=== PATIENT | female | born 1995 | race Caucasian/White ===

== ENCOUNTER 2024-06-08 13:22 | Observation (INO) | payer OTHER, SELFPAY ==
--- NOTE | ~2024-06-08 | CT_ITS ---
Non-contrast CT scan of the Abdomen and Pelvis Clinical indication: Fever, abdominal pain Technique: 2.5 mm axial scans were obtained through the abdomen and pelvis without intravenous or or al contrast. Dose reduction technique was used on this scan by utilizing automated exposure control a nd iterative reconstruction technique. The dose-length product (DLP) was 401.48 mGy-cm. Findings: Images through the lung bases reveal no abnormalities. There is no evidence of renal or ureteral calculi. The kidneys and the ureters are nondilated. The liver, spleen, pancreas, gallbladder, and adrenals appear normal. There is no aortic aneurysm. There is no evidence of bowel obstruction. Images through the pelvis were performed. There is no evidence of ascites or lymphadenopathy. There i s probable enlarged uterus with a 8.7 x 6.8 cm hyperdense masslike structure centrally, suspicious fo r hematoma. Impression: Probable enlarged uterus with 8.7 x 6.8 cm central uterine hematoma, at the endometrial stripe region . Hemorrhagic products surrounding hyperdense uterus would be an alternative consideration. Pelvic ul trasound could be considered for further evaluation as indicated. Superinfection difficult to exclude by CT imaging. Reviewed, dictated and finalized at [facility]. Impression: Probable enlarged uterus with 8.7 x 6.8 cm central uterine hematoma, at the end ometrial stripe region. Hemorrhagic products surrounding hyperdense uterus woul d be an alternative consideration. Pelvic ultrasound could be considered for fu rther evaluation as indicated. Superinfection difficult to exclude by CT imagin g.
--- NOTE | ~2024-06-08 | US_ITS ---
EXAMINATION: US pelvic complete DATE: 06/08/2024 15:19 INDICATION: Fever. yesterday. TECHNIQUE: Multiple transvaginal sonographic images of the pelvis were obtained. COMPARISON: None. FINDINGS: The uterus measures 14.2 x 10.1 x 10.9 cm. There is trace free fluid in the pelvis. The endometrial c omplex measures 6.8 cm in thickness without internal vascular flow on color Doppler. The ovaries are not visualized. IMPRESSION: 1. Markedly thickened endometrial complex, consistent with retained products of conception. Gestation al trophoblastic disease is not excluded. Reviewed, dictated and finalized at location A. IMPRESSION: 1. Markedly thickened endometrial complex, consistent with retained products of conception. Gestational trophoblastic disease is not excluded.
--- NOTE | ~2024-06-08 | CT_ITS ---
EXAMINATION: CTA chest PE protocol DATE: 06/08/2024 16:18 INDICATION: Chest pain. Upper back pain. TECHNIQUE: Computed tomography angiography (CTA) of the chest was performed with 100 mL Omnipaque-350 intravenous contrast timed to evaluate the pulmonary arteries. Coronal maximum intensity projection 3D-reconstructions were created by the technologist. Automated exposure control and iterative reconst ruction technique were employed. The dose-length product was 242.78 mGy-cm. COMPARISON: None. FINDINGS: There is mild atelectasis bilaterally. There are centrilobular nodules and groundglass opac ities in posterior segment right upper lobe, consistent with pneumonia. No pleural effusion. The hear t size is normal. No pericardial effusion. There is no pulmonary embolus. There are prominent veins i n the anterior chest wall. The bones are unremarkable. IMPRESSION: 1. No pulmonary embolus. 2. Mild pneumonia in right lung upper lobe. Reviewed, dictated and finalized at location A.
--- NOTE | ~2024-06-08 | XR_ITS ---
XR chest 2V DATE: 06/08/2024 14:52 INDICATION: Chest pain for 1 day; sepsis work up TECHNIQUE: PA and lateral views COMPARISON: None FINDINGS: Normal heart size. No hilar or mediastinal enlargement. No pulmonary infiltrate or consol idation, pulmonary vascular congestion or pleural effusion or pneumothorax. Included skeletal structures unremarkable. IMPRESSION: Negative Reviewed, dictated and finalized at location A. IMPRESSION: Negative
[2024-06-08 13:27] VITALS: BP 105/69; PULSE 82; RESP 19; TEMP 38.8; O2SAT 100
[2024-06-08 14:30] LABS: Basophils Percent Auto 0.3 % (0.2-1.2); Eosinophils Absolute Auto 0.1 K/mm3 (0-0.3); Eosinophils Percent Auto 0.4 % (0-4.4); Hematocrit 32.5 % (37.0-47.0); Hemoglobin 11.3 g/dL (12.0-15.0); Immature Granulocyte Absolute 0.07 K/mm3 (0.00-0.031); Immature Granulocyte Percent A 0.5 % (0-0.5); Lymphocytes Absolute Auto 0.89 K/mm3 (0.9-3.2); Lymphocytes Percent Auto 6.1 % (18.3-44.2); Mean Corpuscular HGB Conc 34.8 g/dl (32-36); Mean Corpuscular Hemoglobin 30.8 pg (26-34); Mean Corpuscular Volume 88.6 fl (80-100); Mean Platelet Volume 10.7 fl (7.4-10.4); Monocytes Absolute Auto 0.7 K/mm3 (0.1-0.6); Monocytes Percent Auto 4.6 % (2.6-8.5); Neutrophils Absolute Auto 12.9 K/mm3 (1.3-6.7); Neutrophils Percent Auto 88.1 % (45.5-73.1); Platelet Count Result 133 k/mm3 (150-375); Red Blood Count 3.67 M/mm3 (4.2-5.4); Red Cell Distribution Width 12.7 % (11.5-14.5); White Blood Count 14.6 K/mm3 (4.5-10.0)
[2024-06-08 14:36] LABS: Add Urine Microscopic? YES; Appearance Urine Cloudy (Clear); Bacteria Urine None Seen /hpf; Bilirubin Urine Negative (Negative); Blood Urine 3+ (Negative); Color Urine Dark Yellow (Yellow); Glucose Urine UA Negative (Negative); Ketones Urine 4+ mg/dL (Negative); Leukocyte Esterase Ur 1+ LEU/UL (Negative); Nitrate Urine Negative (Negative); Non Pathogenic Casts 0-2; Protein Urine 1+ mg/dL (Negative); RBC Urine >100 /hpf (0-2); Specific Grav Ur 1.025 (1.001-1.035); Squamous Epithelial Cell Urine Few /hpf (Few)
[2024-06-08 14:42] LABS: INR 1.2; Prothrombin Time 15.3 Seconds (11.1-14.7)
[2024-06-08] MEDS: ACETAMINOPHEN 500 MG TABLET 1000 MG PO ×2 (14:43→22:41)
[2024-06-08] MEDS: SODIUM CHLORIDE 0.9% IV 1,000 ML 999 ML IV CONT ×2 (14:43→15:58)
--- NOTE | 2024-06-08 14:46 | ED.GENADULT ---
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 Patient was and had been approx 11 weeks gestation. Underwent surgical /D&C yesterday at [facility] in [place], [place]. Patient does not currently follow with an OBGYN. Reports last night, several hours after the procedure, patient began having fevers. Took ibuprofen last night and this morning. She also reports having pain in her chest, radiating through to her back /shoulders. This pain is worse with movement, laying flat or on her side, taking deep breaths. Reports intermittent lower abdominal pain. Reports very mild vaginal bleeding. Denies SOB, nausea, vomiting, cough, cold symptoms, sick contacts. <Lexie Pruitt PA-C - Last Filed: 06/08/24 19:21> Related Data Home medications: Home Medications Medication Instructions Recorded Confirmed etonogestrel 0.12 mg-ethinyl 1 vag ring vaginal MONTHLY 06/08/24 06/08/24 estradiol 0.015 mg/24 hr vaginal ring (EnilloRing) <Lexie Pruitt PA-C - Last Filed: 06/08/24 19:21> Allergies/adverse reactions: Allergies Allergy/AdvReac Type Severity Reaction Status Date / Time No Known Allergies Allergy Unverified 06/20/17 12:07 <Lexie Pruitt PA-C - Last Filed: 06/08/24 19:21> Review of Systems Review of Systems: All systems reviewed & are unremarkable except as noted in HPI. <Lexie Pruitt PA-C - Last Filed: 06/08/24 19:21> All systems reviewed & are unremarkable except as noted in HPI and below <Lexie Pruitt PA-C - Last Filed: 06/08/24 19:21> PMFSH Surgical History Surgical History: Surgical History (Updated 06/08/24 @ 22:59 by Joanne Denny PA-C) History of elective History of hemorrhoidectomy History of tubal ligation <Lexie Pruitt PA-C - Last Filed: 06/08/24 19:21> Social History Social History: Social History (Updated 06/08/24 @ 23:00 by Joanne Denny PA-C) Social History: Surrogate medical decision maker: Ro Campbell, sister. Code status: Full code. Smoking status: Never smoker Alcohol intake: current Drinks per week: 5 Substance use: never Substance use type: does not use Do You Feel Safe in your Home?: Yes Lack of Transportation: No Lack of Food: Never True Current Housing: I Have Housing Concerned About Future Housing: No Difficulty Paying Gas/Electric Bills: No Difficulty Paying for Meds: No Currently Unemployed: No Education: Decline to Answer Difficulty w/ Childcare or Family Care: No Additional living arrangements comments: Recently . She has 4 children under the age of 8. 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 Spiritual care concerns: No <Lexie Pruitt PA-C - Last Filed: 06/08/24 19:21> Exam Narrative: GENERAL: Mildly unwell appearing, well-nourished, non-toxic, in no acute distress. HEAD: Normocephalic, atraumatic. RESPIRATORY: Airway patent, respirations nonlabored. Clear to auscultation bilaterally, no rales, rhonchi, wheezing. no significant focal lung sounds. CARDIOVASCULAR: Regular rate and rhythm without murmurs, rubs, or gallops. ABDOMINAL: Soft, Mild tenderness throughout lower abdomen, no rebound, nondistended. No
[2024-06-08 14:48] LABS: Lactic Acid Reflex 1.4 mmol/L (0.7-2.0)
--- NOTE | 2024-06-08 14:49 | ECG_ITS ---
Test Date: 2024-06-08 16:02:58 Measurements Intervals [place] Rate: 88 P: 53 MD: 135 QRS: 37 QRSD: 79 T: 23 QT: 366 QTc: 444 Interpretive Statements SINUS RHYTHM BORDERLINE ST ABNORMALITY- LATERAL LEADS BASELINE ARTIFACT- I, II, III, AVR, AVL,A VF BORDERLINE ECG No previous ECG available for comparison Electronically Signed On 06-08-2024 20:00:24 CDT by Freddy Flowers D.O.
[2024-06-08 14:59] LABS: D Dimer > 20.00 ug/mL (<0.48)
[2024-06-08 15:03] LABS: Alanine Aminotransferase 18 U/L (6-35); Albumin Level 3.8 g/dL (3.5-5.1); Alkaline Phosphatase 51 U/L (38-126); Anion Gap 11 mmol/L (4-12); Aspartate Amino Transferase 24 U/L (14-36); Bilirubin,Total 2.8 mg/dL (0.2-1.3); Blood Urea Nitrogen 7 mg/dL (7-17); CRP 16.9 mg/dL (<1.0); Carbon Dioxide 19 mmol/L (22-30); Chloride 100 mmol/L (98-107); Estimated CRCL calculation 106 ml/min; Estimated Glomerular Filt Rate > 60; Glucose 110 mg/dL (65-110); Lipase 32 U/L (23-300); Potassium 3.2 mmol/L (3.4-5.0); Sodium 130 mmol/L (137-145)
[2024-06-08 15:06] LABS: Influenza A QL RT-PCR Negative (Negative); Influenza B QL RT-PCR Negative (Negative); RSV RNA, RT-PCR Negative (Negative); SARS-CoV-2 RNA PCR Negative (Negative)
[2024-06-08 15:47] LABS: Magnesium 1.8 mg/dL (1.6-2.3)
[2024-06-08 15:58] LABS: Troponin I < 0.012 ng/mL (0.000-0.034)
[2024-06-08] MEDS: POTASSIUM CHLORIDE 20 MEQ ER TABLET 40 MEQ PO (15:58)
[2024-06-08] MEDS: PIPERACILLN/TAZ 3.375GM/NS50ML 3.375 GM/50 ML BAG IVPB ×2 (17:47→23:30)
[2024-06-08 17:50] VITALS: BP 102/69; PULSE 82; RESP 20; TEMP 36.8; O2SAT 100
[2024-06-08] MEDS: AZITHROMYCIN 500 MG/NS 250 ML 500 MG/250 ML BAG 250 MG IVPB (18:26)
--- NOTE | 2024-06-08 18:35 | WPDCN ---
Assessment and Plan Assessment and plan (1) Postoperative fever: Code(s): R50.82 - Postprocedural fever Status: Acute (2) Retained products of conception following : Code(s): O03.4 - Incomplete spontaneous without complication Status: Acute (3) Right upper lobe pneumonia: Code(s): J18.9 - Pneumonia, unspecified organism Status: Acute (4) Systemic inflammatory response syndrome: Code(s): R65.10 - Systemic inflammatory response syndrome (SIRS) of non-infectious origin without acute organ dysfunction Status: Acute (5) Electrolyte abnormality: Code(s): E87.8 - Other disorders of electrolyte and fluid balance, not elsewhere classified Status: Acute Plan The patient presented to the emergency department for evaluation of a fever which developed several hours after an elective done yesterday as per HPI. Labs, imaging, EKG, and all reports were personally reviewed. Pelvic ultrasound showed retained products of conception and septic is a consideration. Mild right upper lobe pneumonia was noted on chest CTA although she does not really have symptoms as of yet. She was started on Zosyn in the emergency department and will add vancomycin pending cultures. Blood cultures have been obtained and are pending. She will be NPO after midnight for D&C tomorrow per Dr. Burrell. Analgesics and antiemetics are available as needed. Sodium and potassium are both a bit low and she has been started on normal saline. Potassium will be replaced and monitored. Her home medications will be reviewed and resumed as appropriate. Findings and treatment plan were discussed with the patient. Questions were solicited and answered to satisfaction. The patient's medical management will be taken over by the hospitalist team in a.m. Thank you for allowing us to participate in this patient's care. Please do not hesitate to contact us with any questions. [facility] Data of Consult Date/Time: 06/08/24 21:00 Requesting Physician: Dread Burrell MD Consult Narrative Reason for consult: Pneumonia. Narrative: This is a previously healthy 28-year-old female who presented to the emergency department for evaluation of a fever. The patient provides the following history. She had an yesterday at [facility] in [place] at 11 weeks gestation and there are no reports of immediate complications. She was told that she would need to take antibiotics thereafter however that it would not be available until Sunday. Several hours after the surgery she developed a fever along with sharp, shooting pain in the suprapubic region with movement as well as intermittent, nonradiating pleuritic-type pain throughout the anterior chest. She has been taking ibuprofen for her symptoms. She has mild vaginal bleeding which she was told is normal. She has not noticed any thick more malodorous discharge. She denies syncope, near syncope sinus congestion, sore throat, cough, shortness of breath, nausea, vomiting, diarrhea, dysuria, lower extremity edema, and calf pain. 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 In the ED: Vital signs on arrival include a temperature of 101.9? F, blood pressure 105/69, pulse 82, respiratory rate 19, SpO2 100% on room air. Labs were significant for WBC count 14.6, hemoglobin 11.3, platelet 133, D-dimer was greater than 20, sodium 130, potassium 3.2, BUN 7, creatinine 0.60, total bilirubin 2.8, CRP 16.9, beta hCG 14,351. Urinalysis was positive for 1+ protein, 4+ ketones, 3+ blood, 1+ leukocyte esterase, greater than 100 RBC, and 11 to 20 WBC. She tested negative for influenza, RSV, and COVID. Chest x-ray was read as normal. Pelvis ultrasound showed markedly thickened endometrial complex consistent with retained products of conception though gestational trophoblastic disease is not excluded. Chest CTA showed no pulmonary e
[2024-06-08 19:38] VITALS: BMI 25.7
--- NOTE | 2024-06-08 19:40 | PC.NURSE ---
This patient, Mita Bush, was admitted to 3 [facility] Surg Room 320-01. Patient/family oriented to hospital policies and general routines including ID bracelet, bed and alarms, visiting hours, pain management, procedures, bathroom and other care routines, personal items, smoking policy, room service/diet, and visiting hours. Information on how to activate the Rapid Response Team has been discussed. Patient/Family are encouraged to report perceived risks to care and to ask questions if they do not understand what they are told or what they should do.
[2024-06-08 21:49] VITALS: BP 97/52; PULSE 97; RESP 16; TEMP 39; O2SAT 100
[2024-06-08 21:57] VITALS: BP 117/73; PULSE 98; RESP 18; TEMP 39.1; O2SAT 100
[2024-06-08 22:41] VITALS: TEMP 39.1
[2024-06-08] MEDS: SODIUM CHLORIDE 0.9% IV 1,000 ML 125 ML IV CONT (22:43)
[2024-06-08 23:40] LABS: Anion Gap 7 mmol/L (4-12); Bilirubin Indirect 1.8 mg/dL (0-1.1); Blood Urea Nitrogen 6 mg/dL (7-17); Calcium 8.4 mg/dL (8.4-10.2); Carbon Dioxide 20 mmol/L (22-30); Chloride 107 mmol/L (98-107); Estimated CRCL calculation 125 ml/min; Estimated Glomerular Filt Rate > 60; Glucose 110 mg/dL (65-110); Magnesium 1.8 mg/dL (1.6-2.3); Potassium 3.7 mmol/L (3.4-5.0); Sodium 134 mmol/L (137-145)
[2024-06-08 23:41] VITALS: TEMP 37.9
[2024-06-08 23:46] LABS: Fibrinogen 218 mg/dl (215-510)
[2024-06-08 23:56] LABS: Procalcitonin 0.2 ng/mL
[2024-06-09] VITALS (18 sets, daily range): BP systolic 96–120; BP diastolic 46–71; PULSE 60–107; RESP 14–20; TEMP 36.7–39.5; O2SAT 98–100
[2024-06-09] MEDS: VANCOMYCIN 1,750 MG/NS 500 ML 1,750 MG/500 ML BAG 250 MG IVPB (00:13)
[2024-06-09] MEDS: ACETAMINOPHEN 325 MG TABLET 650 MG PO ×2 (04:59→20:44)
[2024-06-09] MEDS: HYDROcodone/acetaminophen (*CRX) 5-325 MG TABLET 1 TAB PO (04:59)
[2024-06-09] MEDS: PIPERACILLN/TAZ 3.375GM/NS50ML 3.375 GM/50 ML BAG IVPB ×4 (05:02→23:45)
[2024-06-09 06:29] LABS: MRSA (PCR) NOT DETECTED (NOT DETECTE)
[2024-06-09 07:45] LABS: Hematocrit 29.1 % (37.0-47.0); Hemoglobin 9.8 g/dL (12.0-15.0); Immature Platelet Fraction Pct 4.3 % (0.9-11.2); Mean Corpuscular HGB Conc 33.7 g/dl (32-36); Mean Corpuscular Hemoglobin 30.4 pg (26-34); Mean Corpuscular Volume 90.4 fl (80-100); Mean Platelet Volume 11.1 fl (7.4-10.4); Platelet Count Result 123 k/mm3 (150-375); Red Blood Count 3.22 M/mm3 (4.2-5.4); Red Cell Distribution Width 12.8 % (11.5-14.5); White Blood Count 12.8 K/mm3 (4.5-10.0)
[2024-06-09 07:57] LABS: Alanine Aminotransferase 14 U/L (6-35); Albumin Level 2.8 g/dL (3.5-5.1); Alkaline Phosphatase 40 U/L (38-126); Anion Gap 6 mmol/L (4-12); Aspartate Amino Transferase 22 U/L (14-36); Bilirubin,Total 1.8 mg/dL (0.2-1.3); Blood Urea Nitrogen 4 mg/dL (7-17); Calcium 7.7 mg/dL (8.4-10.2); Carbon Dioxide 21 mmol/L (22-30); Chloride 106 mmol/L (98-107); Estimated CRCL calculation 125 ml/min; Estimated Glomerular Filt Rate > 60; Glucose 98 mg/dL (65-110); Potassium 3.4 mmol/L (3.4-5.0); Sodium 133 mmol/L (137-145)
--- NOTE | 2024-06-09 09:41 | PM.IMHP ---
H&P: HPI History of Present Illness Date/Time: 06/09/24 09:41 Chief Complaint: septic Narrative: Patient is a 28 year old female who presents for fevers, abdominal pain, and vaginal bleeding following suction D&C on 06/07. She reports a suction D&C on 06/07 at ~11 weeks gestation. Per patient, surgery was uncomplicated. She was discharged from the facility on the same day. She then reported suprapubic sharp pain and mild vaginal bleeding, followed by fever of 101.9 in the ER. She was admitted for concern for septic . While in the ER, pelvic US demonstrated 6.8cm endometrial complex, concerning for retained POC vs hematoma. Ovaries and uterus otherwise wnl. CXR was clear, however CTA lungs demonstrated RUL pneumonia. Patient denies cough, however did report chest pain on admission. She was started on IV Zosyn and admitted for further treatment Tmax overnight 100.8. Patient reports no worsening abdominal pain or vaginal bleeding. No issues with IV antibiotics. Hospitalist consulted for pneumonia management. Review of Systems Review of Systems: All systems reviewed & are unremarkable except as noted in HPI and below PMFSH Surgical History Surgical History History of elective History of hemorrhoidectomy History of tubal ligation Social History Social History Social History: Surrogate medical decision maker: Ro Campbell, . Code status: Full code. Smoking status: Never smoker Alcohol intake: current Drinks per week: 5 Substance use: never Substance use type: does not use Do You Feel Safe in your Home?: Yes Lack of Transportation: No Lack of Food: Never True Current Housing: I Have Housing Concerned About Future Housing: No Difficulty Paying Gas/Electric Bills: No Difficulty Paying for Meds: No Currently Unemployed: No Education: Decline to Answer Difficulty w/ Childcare or Family Care: No Additional living arrangements comments: Recently . She has 4 children under the age of 8. 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 Spiritual care concerns: No Meds Home Medications and Allergies Home Medications Medication Instructions Recorded Confirmed Type etonogestrel 0.12 mg-ethinyl 1 vag ring vaginal MONTHLY 06/08/24 06/08/24 History estradiol 0.015 mg/24 hr vaginal ring (EnilloRing) Allergies Allergy/AdvReac Type Severity Reaction Status Date / Time No Known Allergies Allergy Unverified 06/20/17 12:07 Vital Signs Vital Signs - 24 hr 06/08/24 13:27 06/08/24 17:50 06/08/24 21:49 Temperature 101.9 F H 98.2 F 102.2 F H Pulse Rate 82 82 97 Respiratory Rate 19 20 16 Blood Pressure 105/69 102/69 97/52 L Pulse Oximetry 100 100 100 Oxygen Delivery Room Air 06/08/24 21:57 06/08/24 22:41 06/08/24 20:00 Temperature 102.3 F H 102.3 F H Pulse Rate 98 Respiratory Rate 18 Blood Pressure 117/73 Pulse Oximetry 100 Oxygen Delivery Room Air 06/09/24 00:00 06/09/24 04:00 06/08/24 23:41 Temperature 100.2 F H Pulse Rate 99 104 H Respiratory Rate Blood Pressure Pulse Oximetry Oxygen Delivery 06/09/24 04:59 06/09/24 04:59 06/09/24 05:59 Temperature 103.1 F H 100.4 F H Pulse Rate 107 H Respiratory Rate 20 Blood Pressure 116/60 Pulse Oximetry 99 Oxygen Delivery Exam Const: General: comfortable and no acute distress HENMT: Mouth: Yes moist mucous membranes Eyes: General: appearance normal, both eyes and all related structures Resp: Effort & Inspection: normal respiratory effort Cardio: Rate: regular rate GI: GI Palp: Yes Soft to palpation, Yes Tenderness to palpation present (GI) (mild diffuse) and No Guarding due to palpation present (GI) Skin: General skin exam: normal color Extrem: General: normal to inspection Psych: Mental Status: mental s
--- NOTE | 2024-06-09 09:49 | P.PNIM_ITS ---
Progress Note: A&P Assessment and Plan (1) Sepsis: Qualifiers: Sepsis acute organ dysfunction status: unspecified Sepsis type: sepsis due to unspecified organism Qualified Code(s): A41.9 - Sepsis, unspecified o rganism Code(s): A41.9 - Sepsis, unspecified organism Status: Acute Assessment and Plan: 06/09/24: * initially meeting sepsis criteria with elevated temp and white blood cell count with probable source of infection * lactic acid was normal at 1.4, white blood cell count initially was 14.6 now down to 12.8 today * T-max 103.1 * blood and urine cultures were obtained and are pending * patient was started on vancomycin, Rocephin, and Zosyn * MRSA was negative * vancomycin was discontinued * mycoplasma is pending * chest CTA showing mild pneumonia and right upper lobe * CT of the abdomen pelvis showing probable enlarged uterus with 8.7 x 6.8 cm central uterine hematoma at the endometrial strip region with concern for retained products of conception. patient is 2 days post /D&C. * OB took patient for D&C today, no post op issues (2) Postoperative fever: Code(s): R50.82 - Postprocedural fever Status: Acute Assessment and Plan: 06/09/24: * T-max 103.1? * currently on Zosyn and Rocephin (3) Retained products of conception following : Code(s): O03.4 - Incomplete spontaneous without complication Status: Acute Assessment and Plan: 06/09/24: * pelvis ultrasound showing markedly thickened endometrial complex consistent with retained products of conception * abdomen pelvis CT today shown enlarged uterus with 8.7 x 6.8 cm central uterine hematoma at the endometrial strip region, hemorrhagic products surrounding hyper dense uterus would be an alternative consideration, superinfection difficult to exclude * OB following * hemoglobin 9.8 today down from 11.3 yesterday, platelet count 123, fibrinogen 218 (4) Right upper lobe pneumonia: Code(s): J18.9 - Pneumonia, unspecified organism Status: Acute Assessment and Plan: 06/09/24: * chest x-ray was negative * chest CTA was negative for PE however did show mild pneumonia in the right upper lobe. * continue Rocephin and Zosyn * vancomycin DC * MRSA was negative * mycoplasma is pending (5) Electrolyte abnormality: Code(s): E87.8 - Other disorders of electrolyte and fluid balance, not elsewhere classified Status: Acute Assessment and Plan: 06/09/24: * sodium 133 today * potassium 3.4 * continue to trend Time Spent With Patient Time with patient: Greater than 35 minutes Subjective Date/time seen: 06/09/24 09:49 Interval history: Interval history: This is a 28-year-old female who presented to the hospital on 06/08/2024 with fever and pain in her chest after undergoing a surgical / D&C at [facility] in [facility]. workup in the hospital included a chest x-ray which was negative. Pelvic ultrasound revealed markedly thickened endometrial complex consistent with retained products of conception. Chest CTA was negative for PE, showed mild pneumonia in right lung upper lobe. CT of the abdomen pelvis shows probable enlarged uterus with 8.7 by 6.8 cm central uterine hematoma at the endometrial strip region, hemorrhagic products surrounding hyperdense uterus is also an alternative consideration. Initial labs showed a white blood cell count of 14.6, hemoglobin 11.3, platelet count 133, fibrinogen 218, D-dimer greater than 20, INR was 1.2, sodium 130, potassium
--- NOTE | 2024-06-09 09:49 | PM.IMPN ---
Progress Note: A&P Assessment and Plan (1) Sepsis: Qualifiers: Sepsis acute organ dysfunction status: unspecified Sepsis type: sepsis due to unspecified organism Qualified Code(s): A41.9 - Sepsis, unspecified organism Code(s): A41.9 - Sepsis, unspecified organism Status: Acute Assessment and Plan: 06/09/24: initially meeting sepsis criteria with elevated temp and white blood cell count with probable source of infection lactic acid was normal at 1.4, white blood cell count initially was 14.6 now down to 12.8 today T-max 103.1 blood and urine cultures were obtained and are pending patient was started on vancomycin, Rocephin, and Zosyn MRSA was negative vancomycin was discontinued mycoplasma is pending chest CTA showing mild pneumonia and right upper lobe CT of the abdomen pelvis showing probable enlarged uterus with 8.7 x 6.8 cm central uterine hematoma at the endometrial strip region with concern for retained products of conception. patient is 2 days post /D&C. OB took patient for D&C today, no post op issues (2) Postoperative fever: Code(s): R50.82 - Postprocedural fever Status: Acute Assessment and Plan: 06/09/24: T-max 103.1? currently on Zosyn and Rocephin (3) Retained products of conception following : Code(s): O03.4 - Incomplete spontaneous without complication Status: Acute Assessment and Plan: 06/09/24: pelvis ultrasound showing markedly thickened endometrial complex consistent with retained products of conception abdomen pelvis CT today shown enlarged uterus with 8.7 x 6.8 cm central uterine hematoma at the endometrial strip region, hemorrhagic products surrounding hyper dense uterus would be an alternative consideration, superinfection difficult to exclude OB following hemoglobin 9.8 today down from 11.3 yesterday, platelet count 123, fibrinogen 218 (4) Right upper lobe pneumonia: Code(s): J18.9 - Pneumonia, unspecified organism Status: Acute Assessment and Plan: 06/09/24: chest x-ray was negative chest CTA was negative for PE however did show mild pneumonia in the right upper lobe. continue Rocephin and Zosyn vancomycin DC MRSA was negative mycoplasma is pending (5) Electrolyte abnormality: Code(s): E87.8 - Other disorders of electrolyte and fluid balance, not elsewhere classified Status: Acute Assessment and Plan: 06/09/24: sodium 133 today potassium 3.4 continue to trend Time Spent With Patient Time with patient: Greater than 35 minutes Subjective Date/time seen: 06/09/24 09:49 Interval history: Interval history: This is a 28-year-old female who presented to the hospital on 06/08/2024 with fever and pain in her chest after undergoing a surgical / D&C at [facility]. workup in the hospital included a chest x-ray which was negative. Pelvic ultrasound revealed markedly thickened endometrial complex consistent with retained products of conception. Chest CTA was negative for PE, showed mild pneumonia in right lung upper lobe. CT of the abdomen pelvis shows probable enlarged uterus with 8.7 by 6.8 cm central uterine hematoma at the endometrial strip region, hemorrhagic products surrounding hyperdense uterus is also an alternative consideration. Initial labs showed a white blood cell count of 14.6, hemoglobin 11.3, platelet count 133, fibrinogen 218, D-dimer greater than 20, INR was 1.2, sodium 130, potassium 3.2, bicarb 19, total bili 2.8, indirect bili 1.8, troponin negative, C reactive protein 16.9, procalcitonin 0.2, H CG 14,351. UA was obtained which showed a cloudy appearance, 1+ urine protein, 4+ ketones, 3+ urine blood, 1+ leukocyte, greater than 100 urine RBC, 11-20 urine wbc's. MRSA was negative. Respiratory panel was negative for influenza a and B, RSV, COVID. Mycoplasma is pending. Urine a
--- NOTE | 2024-06-09 10:00 | WPDHPUPDATE1 ---
History and Physical Update Update Date/Time: 06/09/24 10:00 History and Physical has been reviewed, including an updated exam of the patient. There are NO changes in the patient's condition. Risks, benefits, and alternatives have been discussed and questions answered. Patient agrees to proceed with procedure.
[2024-06-09] MEDS: SODIUM CHLORIDE 0.9% IV 1,000 ML 125 ML IV CONT (11:45)
--- NOTE | 2024-06-09 13:48 | WPDANESEPPF ---
Anes - Initial Pre Proc Eval Procedure: Operation Date: 06/09/24 14:30 Proposed Procedures p Suction Dilation And Curettage - Albino Parr MD Date/Time: 06/09/24 13:48 Surgeon: Dread Burrell MD Pre Op Diagnosis: sepsis, retained POC s/p , PNA Patient Data Age: 28 Gender: F Height: 1.65 m Weight: 70.2 kg Last Vital Signs Temp 38.0 C H 06/09/24 05:59 Pulse 68 06/09/24 12:00 Resp 20 06/09/24 04:59 BP 116/60 06/09/24 04:59 Pulse Ox 99 06/09/24 04:59 O2 Del Method Room Air 06/09/24 08:00 Allergies Allergy/AdvReac Type Severity Reaction Status Date / Time No Known Allergies Allergy Unverified 06/20/17 12:07 Home Medications Medication Instructions Recorded Confirmed Type etonogestrel 0.12 mg-ethinyl 1 vag ring vaginal MONTHLY 06/08/24 06/08/24 History estradiol 0.015 mg/24 hr vaginal ring (EnilloRing) Laboratory Tests 06/08/24 06/08/24 06/08/24 14:18 14:22 23:23 WBC 14.6 H K/mm3 (4.5-10.0) RBC 3.67 L M/mm3 (4.2-5.4) Hgb 11.3 L g/dL (12.0-15.0) Hct 32.5 L % (37.0-47.0) MCV 88.6 fl (80-100) MCH 30.8 pg (26-34) MCHC 34.8 g/dl (32-36) RDW 12.7 % (11.5-14.5) Plt Count 133 L k/mm3 (150-375) MPV 10.7 H fl (7.4-10.4) Immature Gran % (Auto) 0.5 % (0-0.5) Neut % (Auto) 88.1 H % (45.5-73.1) Lymph % (Auto) 6.1 L % (18.3-44.2) [place] % (Auto) 4.6 % (2.6-8.5) Eos % (Auto) 0.4 % (0-4.4) Baso % (Auto) 0.3 % (0.2-1.2) Lymph # (Auto) 0.89 L K/mm3 (0.9-3.2) [place] # (Auto) 0.7 H K/mm3 (0.1-0.6) Eos # (Auto) 0.1 K/mm3 (0-0.3) Baso # (Auto) 0.0 K/mm3 (0.0-0.1) Abs Immat Gran (auto) 0.07 H K/mm3 (0.00-0.031) Absolute Neuts (auto) 12.9 H K/mm3 (1.3-6.7) Absolute Nucleated RBC 0.000 K/mm3 (0.0-0.012) Nucleated RBC % 0.0 % (0.0-0.2) % Immature Plt Fraction PT 15.3 H Seconds (11.1-14.7) INR 1.2 APTT 26.0 Seconds (22.3-36.8) Fibrinogen 218 mg/dl (215-510) D-Dimer > 20.00 H ug/mL (<0.48) Sodium 130 L mmol/L (137-145) Potassium 3.2 L mmol/L (3.4-5.0) Chloride 100 mmol/L (98-107) Carbon Dioxide 19 L mmol/L (22-30) Anion Gap 11 mmol/L (4-12) BUN 7 mg/dL (7-17) Creatinine 0.60 L mg/dL (0.7-1.0) Estim Creat Clear Calc 106 ml/min Estimated GFR > 60 (59 - ) Glucose 110 mg/dL (65-110) Lactic Acid 1.4 mmol/L (0.7-2.0) Calcium 9.0 mg/dL (8.4-10.2) Magnesium 1.8 mg/dL (1.6-2.3) Total Bilirubin 2.8 H mg/dL (0.2-1.3) Direct Bilirubin Indirect Bilirubin AST 24 U/L (14-36) ALT 18 U/L (6-35) Alkaline Phosphatase 51 U/L (38-126) Troponin I < 0.012 ng/mL (0.000-0.034) C-Reactive Protein 16.9 H mg/dL (<1.0) Total Protein 7.0 g/dL (6.3-8.2) Albumin 3.8 g/dL (3.5-5.1) Lipase 32 U/L (23-300) Procalcitonin Beta HCG, Quant 40283.00 mIU/ML Urine Color Dark yellow (Yellow) Urine Appearance Cloudy H (Clear) Urine pH 6.0 (5.0-9.0) Ur Specific [place] 1.025 (1.001-1.035) Urine Protein 1+ H mg/dL (Negative) Urine Glucose (UA) Negative mg/dL (Negative) Urine Ketones 4+ H mg/dL (Negative) Ur Blood (Man) 3+ H (Negative) Urine Nitrate Negative (Negative) Urine Bilirubin Negative (Negative) Urine Urobilinogen 1.0 mg/dL (<2.0) Leukocyte Esterase Rfl 1+ H TANYA/UL (Negative) Urine RBC >100 H /hpf (0-2
[2024-06-09] MEDS: LACTATED RINGERS 1,000 ML 30 ML IV CONT (13:55)
[2024-06-09] MEDS: LIDO 1%/EPINEPHRINE 1:100,000 20 ML VIAL 10 ML INFILTRATE (14:16)
--- NOTE | 2024-06-09 14:18 | SUR.OPER ---
endometrium culture sent to lab per Wicho PCT. Wicho handed culture to Catrina in lab at [phone]
--- NOTE | 2024-06-09 14:27 | P.OP_ITS ---
Procedure Note - Detailed Date of Procedure 06/09/24 Pre-op Diagnosis sepsis, retained POC s/p , PNA Post-op Diagnosis Same Procedure Performed suction D&C under ultrasound guidance Surgeon Albino Parr MD Anesthesia MAC Findings uterus enlarged to 12 week size, with large amount of heterogeneous material visualized in the endometrial cavity on bedside US; thin endometrial lining at end of procedure Description of Procedure The patient was then taken to the operating room with IVFs running. She was placed in the dorsal supine position where she received general anesthesia without any difficulty.?? The patient was placed in the dorsal lithotomy posi tion using alisia stirrups. EUA revealed the above findings. She was then prepped and draped in a normal sterile fashion. A time-out procedure was performed and all members of the OR team agreed on the patient and plan. A bivalved speculum was then inserted into the patient's vagina.? The anterior lip of the cervix was grasped with a single tooth tenaculum. The cervical os was dilated using chivo dilators to accommodate a 9mm curette.? The suction curette was tested outside the patient and found to be working properly.? The curette was then advanced into the intrauterine cavity and circumferentially removed.? Ultrasound was utilized throughout the procedure to ensure complete removal of retained products of conception. All products of conception were removed until little tissue was seen passing through the tubing.? ? The specimen was sent to pathology.? The single tooth tenaculum was removed from the anterior lip of the cervix and made hemostatic with silver nitrite sticks.? The bivalve speculum was removed.? The patient tolerated the procedure well.? Sponge, lap, needle, and instrument counts were correct X3.? The patient was awakened from anesthesia and taken to the recovery room in stable condition. ? Estimated Blood Loss 150 Pathology Yes Complications No immediate complications Condition Stable Disposition Floor
[2024-06-10] VITALS: BP 111/56; PULSE 59; PULSE 65; RESP 14; TEMP 36.7; O2SAT 100
[2024-06-10] MEDS: SODIUM CHLORIDE 0.9% IV 1,000 ML 125 ML IV CONT (02:53)
[2024-06-10 04:00] VITALS: BP 100/60; PULSE 62; PULSE 67; RESP 14; TEMP 37.2; O2SAT 100
[2024-06-10] MEDS: PIPERACILLN/TAZ 3.375GM/NS50ML 3.375 GM/50 ML BAG IVPB (05:33)
--- NOTE | 2024-06-10 07:52 | P.PNIM_ITS ---
Progress Note: A&P Assessment and Plan (1) Sepsis: Qualifiers: Sepsis acute organ dysfunction status: unspecified Sepsis type: sepsis due to unspecified organism Qualified Code(s): A41.9 - Sepsis, unspecified o rganism Code(s): A41.9 - Sepsis, unspecified organism Status: Acute Assessment and Plan: 06/09/24: * initially meeting sepsis criteria with elevated temp and white blood cell count with probable source of infection * lactic acid was normal at 1.4, white blood cell count initially was 14.6 now down to 12.8 today * T-max 103.1 * blood and urine cultures were obtained and are pending * patient was started on vancomycin, Rocephin, and Zosyn * MRSA was negative * vancomycin was discontinued * mycoplasma is pending * chest CTA showing mild pneumonia and right upper lobe * CT of the abdomen pelvis showing probable enlarged uterus with 8.7 x 6.8 cm central uterine hematoma at the endometrial strip region with concern for retained products of conception. patient is 2 days post /D&C. * OB took patient for D&C today, no post op issues 06/10/24: * Zosyn discontinued * Start Augmentin and Azithromycin * WBC 9.9 * Blood cultures showing no growth to date on preliminary read * Urine culture was negative * Endometrium culture is pending (2) Postoperative fever: Code(s): R50.82 - Postprocedural fever Status: Acute Assessment and Plan: 06/09/24: * T-max 103.1? * currently on Zosyn and Rocephin 06/10/24: * T max 99.4 * Now on Augmentin and Azithromycin oral (3) Retained products of conception following : Code(s): O03.4 - Incomplete spontaneous without complication Status: Acute Assessment and Plan: 06/09/24: * pelvis ultrasound showing markedly thickened endometrial complex consistent with retained products of conception * abdomen pelvis CT today shown enlarged uterus with 8.7 x 6.8 cm central uterine hematoma at the endometrial strip region, hemorrhagic products surrounding hyper dense uterus would be an alternative consideration, superinfection difficult to exclude * OB following * hemoglobin 9.8 today down from 11.3 yesterday, platelet count 123, fibrinogen 218 06/10/24: * Post op day 1 D&C * OB following (4) Right upper lobe pneumonia: Code(s): J18.9 - Pneumonia, unspecified organism Status: Acute Assessment and Plan: 06/09/24: * chest x-ray was negative * chest CTA was negative for PE however did show mild pneumonia in the right u pper lobe. * continue Rocephin and Zosyn * vancomycin DC * MRSA was negative * mycoplasma is pending 06/10/24: * Start Augmentin and Azithromycin * Urine strep, urine legionella, and mycoplasma pending (5) Electrolyte abnormality: Code(s): E87.8 - Other disorders of electrolyte and fluid balance, not elsewhere classified Status: Acute Assessment and Plan: 06/09/24: * sodium 133 today * potassium 3.4 * continue to trend 06/10/24: * Na+ 137 * K+ 3.0 and given 80 meq of KCL today Plan Patient is currently stable and ok for discharge from our standpoint. We will go ahead and sign off for today. Antibiotics were switched to oral for pneumonia coverage. Time Spent With Patient Time with patient: 25 - 35 minutes Subjective Date/time seen: 06/10/24 07:52 Interval history: Interval history: This is a 28-year-old female who presented to the hospital on 06/08/2024 with fever and pain in h
--- NOTE | 2024-06-10 07:52 | PM.IMPN ---
Progress Note: A&P Assessment and Plan (1) Sepsis: Qualifiers: Sepsis acute organ dysfunction status: unspecified Sepsis type: sepsis due to unspecified organism Qualified Code(s): A41.9 - Sepsis, unspecified organism Code(s): A41.9 - Sepsis, unspecified organism Status: Acute Assessment and Plan: 06/09/24: initially meeting sepsis criteria with elevated temp and white blood cell count with probable source of infection lactic acid was normal at 1.4, white blood cell count initially was 14.6 now down to 12.8 today T-max 103.1 blood and urine cultures were obtained and are pending patient was started on vancomycin, Rocephin, and Zosyn MRSA was negative vancomycin was discontinued mycoplasma is pending chest CTA showing mild pneumonia and right upper lobe CT of the abdomen pelvis showing probable enlarged uterus with 8.7 x 6.8 cm central uterine hematoma at the endometrial strip region with concern for retained products of conception. patient is 2 days post /D&C. OB took patient for D&C today, no post op issues 06/10/24: Zosyn discontinued Start Augmentin and Azithromycin WBC 9.9 Blood cultures showing no growth to date on preliminary read Urine culture was negative Endometrium culture is pending (2) Postoperative fever: Code(s): R50.82 - Postprocedural fever Status: Acute Assessment and Plan: 06/09/24: T-max 103.1? currently on Zosyn and Rocephin 06/10/24: T max 99.4 Now on Augmentin and Azithromycin oral (3) Retained products of conception following : Code(s): O03.4 - Incomplete spontaneous without complication Status: Acute Assessment and Plan: 06/09/24: pelvis ultrasound showing markedly thickened endometrial complex consistent with retained products of conception abdomen pelvis CT today shown enlarged uterus with 8.7 x 6.8 cm central uterine hematoma at the endometrial strip region, hemorrhagic products surrounding hyper dense uterus would be an alternative consideration, superinfection difficult to exclude OB following hemoglobin 9.8 today down from 11.3 yesterday, platelet count 123, fibrinogen 218 06/10/24: Post op day 1 D&C OB following (4) Right upper lobe pneumonia: Code(s): J18.9 - Pneumonia, unspecified organism Status: Acute Assessment and Plan: 06/09/24: chest x-ray was negative chest CTA was negative for PE however did show mild pneumonia in the right upper lobe. continue Rocephin and Zosyn vancomycin DC MRSA was negative mycoplasma is pending 06/10/24: Start Augmentin and Azithromycin Urine strep, urine legionella, and mycoplasma pending (5) Electrolyte abnormality: Code(s): E87.8 - Other disorders of electrolyte and fluid balance, not elsewhere classified Status: Acute Assessment and Plan: 06/09/24: sodium 133 today potassium 3.4 continue to trend 06/10/24: Na+ 137 K+ 3.0 and given 80 meq of KCL today Plan Patient is currently stable and ok for discharge from our standpoint. We will go ahead and sign off for today. Antibiotics were switched to oral for pneumonia coverage. Time Spent With Patient Time with patient: 25 - 35 minutes Subjective Date/time seen: 06/10/24 07:52 Interval history: Interval history: This is a 28-year-old female who presented to the hospital on 06/08/2024 with fever and pain in her chest after undergoing a surgical / D&C at [facility] in [facility]. workup in the hospital included a chest x-ray which was negative. Pelvic ultrasound revealed markedly thickened endometrial complex consistent with retained products of conception. Chest CTA was negative for PE, showed mild pneumonia in right lung upper lobe. CT of the abdomen pelvis shows probable enlarged uterus with 8.7 by 6.8 cm central uterine hematoma at the endometrial strip region, hemorrhagic p
[2024-06-10 08:00] VITALS: BP 95/53; PULSE 58; PULSE 72; RESP 16; TEMP 36.6; O2SAT 100
--- NOTE | 2024-06-10 08:49 | WPDANESPN ---
Anes - Prog Note Post-Op Date/Time: 06/10/24 08:49 Cardiovascular status: normal Respiratory status: normal Airway patency: baseline Mental status: baseline Post-Op hydration status: normal Vital Signs: Last Vital Signs Temp 37.2 C 06/10/24 04:00 Pulse 62 06/10/24 04:00 Resp 14 06/10/24 04:00 BP 100/60 06/10/24 04:00 Pulse Ox 100 06/10/24 04:00 O2 Del Method Room Air 06/09/24 20:00 O2 Flow Rate 8 06/09/24 14:55 Pain Score (VAS): 0 I/O: Intake & Output 06/09/24 06/10/24 06/10/24 23:59 07:59 15:59 Intake Total 1290 350 Output Total 400 850 Balance 890 -500 Laboratory Tests 06/09/24 07:27 06/09/24 07:27 06/09/24 10:54 Ur L.pneumophila Ag Pending Urine Pneumococcal Ag Pending Microbiology 06/08/24 14:18 Urine Clean Catch Urine Culture - Final 06/08/24 14:18 Blood Blood Culture - Preliminary 06/08/24 14:18 Blood Blood Culture - Preliminary Post-procedural complaints: none Patient Feedback: Patient satisfied with anesthetic care.
[2024-06-10] MEDS: AZITHROMYCIN 250 MG TABLET 500 MG PO (09:02)
[2024-06-10] MEDS: AMOXICILLIN/CLAVULANATE K 875-125 MG TAB 1 TABLET PO (09:03)
[2024-06-10] MEDS: ACETAMINOPHEN 325 MG TABLET 650 MG PO (09:04)
[2024-06-10 09:33] LABS: Basophils Percent Auto 0.1 % (0.2-1.2); Eosinophils Percent Auto 0.1 % (0-4.4); Hematocrit 28.3 % (37.0-47.0); Hemoglobin 9.4 g/dL (12.0-15.0); Immature Granulocyte Absolute 0.08 K/mm3 (0.00-0.031); Immature Granulocyte Percent A 0.8 % (0-0.5); Lymphocytes Absolute Auto 1.19 K/mm3 (0.9-3.2); Mean Corpuscular HGB Conc 33.2 g/dl (32-36); Mean Corpuscular Hemoglobin 30.3 pg (26-34); Mean Corpuscular Volume 91.3 fl (80-100); Mean Platelet Volume 11.6 fl (7.4-10.4); Monocytes Absolute Auto 0.2 K/mm3 (0.1-0.6); Monocytes Percent Auto 1.9 % (2.6-8.5); Neutrophils Absolute Auto 8.5 K/mm3 (1.3-6.7); Neutrophils Percent Auto 85.1 % (45.5-73.1); Platelet Count Result 139 k/mm3 (150-375); Red Cell Distribution Width 13.1 % (11.5-14.5); White Blood Count 9.9 K/mm3 (4.5-10.0)
[2024-06-10 09:45] LABS: INR 1.1; Prothrombin Time 14.8 Seconds (11.1-14.7)
[2024-06-10 09:46] LABS: Fibrinogen 228 mg/dl (215-510)
[2024-06-10 10:03] LABS: Alanine Aminotransferase 14 U/L (6-35); Albumin Level 2.8 g/dL (3.5-5.1); Alkaline Phosphatase 44 U/L (38-126); Anion Gap 7 mmol/L (4-12); Aspartate Amino Transferase 18 U/L (14-36); Blood Urea Nitrogen 3 mg/dL (7-17); Calcium 8.3 mg/dL (8.4-10.2); Carbon Dioxide 22 mmol/L (22-30); Chloride 108 mmol/L (98-107); Estimated CRCL calculation 125 ml/min; Estimated Glomerular Filt Rate > 60; Glucose 181 mg/dL (65-110); Sodium 137 mmol/L (137-145)
[2024-06-10 12:00] VITALS: BP 95/52; PULSE 64; PULSE 77; RESP 14; TEMP 36.9; O2SAT 100
--- NOTE | 2024-06-10 12:55 | PM.GYNPNOP ---
ANTENNA ENGINEER - A/P Assessment and plan (1) Incomplete with complication: Code(s): O03.30 - Unspecified complication following incomplete spontaneous Status: Acute Assessment and Plan: - s/p suction D&C 06/07 at 11 weeks gestation, uncomplicated per patient - abdominal pain and fevers starting 06/08 - VSS, Tmax/last 100.8 (06/09 at 0600) - now POD#1 s/p repeat suction D&C for retained POC, patient states improvement in pain and bleeding - exam wnl today - WBC 14.7 > 12.8>9.9; Hgb 9.8>9.4 - endometrial culture pending, no organisms seen on gram stain - s/p IV Zosyn, switched to augmentin/azithromycin per hospitalist team for pneumonia as below - given clinical improvement, ok for discharge from OBGYN perspective; warning signs given; recommend [place] [facility] patient's primary OBGYN in 2 weeks for postop visit (2) Right upper lobe pneumonia: Code(s): J18.9 - Pneumonia, unspecified organism Status: Acute Assessment and Plan: - hospitalists consulted for management - IV abx d/c'd; azitho/augmentin per hospitalists Postoperative Procedures: Procedures Operation Date: 06/09/24 14:30 Actual Procedure Side Surgeon p Suction Dilation And Curettage Not Applicable Albino Parr MD Time Spent With Patient Time: Total time spent is greater than 50% in coordination of care (as documented) at patient's floor/unit and/or counseling patient: 15 min Time with patient: 15 - 25 minutes ANTENNA ENGINEER- PN:Subj Post-Op Subjective Date/time seen: 06/10/24 8:15 Interval history: POD#1 s/p suction D&C for septic retained products of conception. Patient reports improvement in abdominal pain and bleeding. No fevers or chills overnight. Tolerating general diet. Passing flatus and voiding without issue. No increased work of breathing. Overall, clinically improved. Review of Systems Review of Systems: All systems reviewed & are unremarkable except as noted in HPI and below Exam Const: General: comfortable and no acute distress Resp: Effort & Inspection: normal respiratory effort Cardio: Rate: regular rate GI: Other: soft, nontender (improved from prior exam), nondistended, no rebound or guarding. Extrem: General: normal to inspection Psych: Mental Status: mental status grossly normal ANTENNA ENGINEER - PN: Obj Data Vital Signs Vital Signs: Vital Signs - 24 hr 06/09/24 13:55 06/09/24 14:26 06/09/24 14:40 Temperature 100.1 F H 98.4 F Pulse Rate 69 94 60 Respiratory Rate 18 20 14 Blood Pressure 120/71 118/67 115/70 Pulse Oximetry 100 100 100 Oxygen Delivery Room Air Simple Face Mask Simple Face Mask Oxygen Flow Rate 8 8 06/09/24 14:55 06/09/24 15:10 06/09/24 15:25 Temperature Pulse Rate 73 68 72 Respiratory Rate 16 15 16 Blood Pressure 103/66 106/64 104/60 Pulse Oximetry 100 98 98 Oxygen Delivery Simple Face Mask Room Air Room Air Oxygen Flow Rate 8 06/09/24 15:40 06/09/24 15:50 06/09/24 16:05 Temperature 99.4 F 98.6 F 98.9 F Pulse Rate 74 76 66 Respiratory Rate 14 16 16 Blood Pressure 106/65 102/70 96/64 L Pulse Oximetry 99 100 99 Oxygen Delivery Room Air Oxygen Flow Rate 06/09/24 16:35 06/09/24 17:35 06/09/24 20:00 Temperature 98.7 F 98.1 F Pulse Rate 70 74 Respiratory Rate 16 16 Blood Pressure 103/63 103/46 L Pulse Oximetry 100 99 Oxygen Delivery Room Air Oxygen Flow Rate 06/09/24 20:00 06/10/24 00:00 06/09/24 20:00 Temperature 99.2 F 98.1 F Pulse Rate 76 65 63 Respiratory Rate 16 14 Blood Pressure 99/58 L 111/56 L Pulse Oximetry 100 100 Oxygen Delivery Oxygen Flow Rate 06/10/24 00:00 06/10/24 04:00 06/10/24 04:00 Temperature 99.0 F Pulse Rate 59 L 67 62 Respiratory Rate 14 Blood Pressure 100/60 Pulse Oximetry 100 Oxygen Delivery Oxygen Flow Rate 06/10/24 08:00 06/10/24 08:00 Temperature 97.9 F Pulse Rate 72 58 L Respiratory Rate 16 Blood Pressure 95/53 L Pulse Oximetry 100 Oxyge
[2024-06-10] MEDS: POTASSIUM CHLORIDE 20 MEQ ER TABLET 40 MEQ PO ×2 (14:09→16:02)
[2024-06-12 19:23] LABS: Mycoplasma IgM Antibody Titer 330 U/mL
[2024-06-14 15:28] LABS: Pneumococcal Antigen Urine NOT DETECTED
[2024-06-14 22:27] LABS: Legionella pneumophila Ag Ur NOT DETECTED
--- NOTE | 2024-06-18 06:47 | PM.DS ---
DS: Admitting Diagnosis Discharge Date 06/10/24 Admitting Diagnosis septic incomplete DS: Discharge Diagnosis Discharge Diagnosis (1) Incomplete with complication: Code(s): O03.30 - Unspecified complication following incomplete spontaneous Status: Acute DS: Summary Hospital Course Hospital Course: Patient was admitted to the hospital 2 days s/p suction D&C at outside facility. Patient presented with abdominal pain, vaginal bleeding, and fevers at home. She was found to have retained products of conception with concern for sepsis due to elevated WBC count and fever. She was started on IV antibiotics. Hospitalist service was consulted for a possible RUL pneumonia. On HD#1 she was taken for a repeat suction D&C which was uncomplicated. She was stable postoperatively. She was transitioned to oral abx for pneumonia and was stable for discharge home on HD#2. She was instructed to follow up in 2 weeks for post op visit. Time Spent with Patient Time attestation: Total time spent providing and/or coordinating discharge services: Exam Const: General: comfortable and no acute distress Resp: Effort & Inspection: normal respiratory effort Cardio: Rate: regular rate GI: Other: soft, nontender (improved from prior exam), nondistended, no rebound or guarding. Extrem: General: normal to inspection Psych: Mental Status: mental status grossly normal DS: Data Data Completed and Pending Completed studies during hospitalization: Pending at discharge 06/09/24 14:11 Surgical [PTH] Routine Discharge Plan Discharge Attending physician on discharge: Albino Parr Consulting providers: Fran Stark; Angie Rea; Mikayla Rodriguez; Joanne Denny Rafe M.; Robin Salmeron; Zachary Mckeon V.; Que Cook; Zuhair Marquez; Kenya Myers Discharging Clinician: Albino Parr Patient Disposition: Home, Self-Care Activity: may shower, as tolerated and pelvic rest Diet: as tolerated Discharge Instructions: D & C INSTRUCTION SHEET The cervix does not immediately close after a D&C, so it is important to follow these instructions to avoid an infection or other complications. 1.? Bleeding may be irregular after the procedure.? A few women do not bleed at all following the procedure, which is normal for them. 2.? Your next normal period should begin in 4-8 weeks (if you were still having periods).? It is possible to get before your first period begins.? Therefore you should use control if is undesirable. 3.? You may have some cramping, similar to menstrual cramps.? If so, you may take your usual pain medication.? If this is not sufficient, you should call our office. 4.? You may experience discomfort in your legs.? This is due to the position of your legs in the stirrups during the surgery. 5.? If you have fever over 100.4 degrees for more than a few hours, call our office. 6.? You may eat or drink anything that you like and return to your usual activities.? Be guided by how you feel. 7.? You may return to work in 1-2 days. 8.? Avoid tampons, douching or sexual intercourse for 2 weeks 9.? You may shower or tub bathe. 10. If you have heavy bleeding (saturating more than 2 pads in 1 hour) or pass large clots, please call the office. FOLLOW-UP: 1. Please make a follow-up appointment to be seen in the office in 2-3 weeks after your surgery. 2. If you have any questions, please do not hesitate to call your physician. Patient Instructions: Antibiotic Form, Amoxicillin/Clavulanate Potassium (By mouth), Azithromycin (By mouth), Sepsis (DC), Pneumonia (DC), Dilation and Curettage (DC) Stand Alone Forms: General Discharge Information, Work/School Release IP Follow-up/Referrals: Albino Parr MD [Physician] - 2 Weeks Discharge Medications: New azithromycin [Zithromax] 250 mg Tablet 500 mg PO BRANDY
== END 2024-06-10 16:05 | disposition home or self-care (01) ==
LOC: ANHED 17:55 → ANH3MEDSUR 18:31
PROVIDERS: Nurse Practitioner Acute Care; Obstetrics & Gynecology; Physician Assistant; Admitting Provider Obstetrics & Gynecology; Emergency Provider Physician Assistant; PCP Nurse Practitioner Family; Visit Provider Obstetrics & Gynecology
PROC: (CPT 59812; principal; 2024-06-09 14:30)
DX: O07.37 Sepsis following failed attempted termination of pregnancy (principal); A41.9 Sepsis, unspecified organism; J18.9 Pneumonia, unspecified organism; R65.10 Systemic inflammatory response syndrome (SIRS) of non-infectious origin without acute organ dysfunction; E87.8 Other disorders of electrolyte and fluid balance, not elsewhere classified; Z20.822 Contact with and (suspected) exposure to COVID-19
CPT/HCPCS: 59812; 36415; 71046; 71275; 74176; 76856; 80048; 80053; 81001; 82248; 83605; 83690; 83735; 84145; 84484; 84702; 85025; 85027; 85055; 85380; 85384; 85610; 85730; 86140; 86738; 87040; 87070; 87075; 87086; 87088; 87205; 87449; 87637; 87641; 87899; 88305; 93005; 96361; 96365; 96375; 99285; A9270; G0378; G0379; J0456; J0696; J1100; J2250; J2405; J2543; J2704; J3010; J3370; J7030; J7120; Q9967

== ENCOUNTER 2024-07-26 13:08 | Inpatient (IN) | payer OTHER, SELFPAY ==
--- NOTE | ~2024-07-26 | CT_ITS ---
EXAMINATION: CT abdomen pelvis w con DATE: 07/27/2024 12:11 INDICATION: Abdominal pain. Flank pain. TECHNIQUE: Computed tomography (CT) of the abdomen and pelvis was performed with 100 mL Omnipaque 350 intravenous contrast. Automated exposure control and iterative reconstruction technique were employe d. The dose-length product was 336.80 mGy-cm. COMPARISON: CT abdomen and pelvis 06/08/2024 FINDINGS: The visualized portions of the lung bases demonstrate minimal atelectasis on the left. No p leural effusion. The heart size is normal. No pericardial effusion. The liver, gallbladder, spleen, p ancreas, adrenal glands, are normal. There are areas of hypoattenuation in the kidneys, consistent wi th pyelonephritis. There is a 5.0 cm cyst in right ovary. There is physiologic fluid in the pelvis. T here are no dilated loops of bowel. The appendix is normal. There are no pathologically enlarged lymp h nodes. The bones are unremarkable. IMPRESSION: 1. Bilateral pyelonephritis. 2. 5.0 cm cyst in right ovary, likely a follicular cyst. Reviewed, dictated and finalized at location A.
[2024-07-26] MEDS: SODIUM CHLORIDE 0.9% IV 1,000 ML 999 ML IV CONT (14:08)
[2024-07-26] MEDS: ONDANSETRON INJ 4 MG/2 ML VIAL IV PUSH (14:09)
[2024-07-26] MEDS: MORPHINE SULFATE (*CRX) 4 MG/ML INJ IV PUSH (14:09)
[2024-07-26 14:12] VITALS: BP 110/72; PULSE 97; TEMP 38.4; O2SAT 99
[2024-07-26 14:20] LABS: BEDSIDEPREGUCG Negative (Negative)
[2024-07-26 14:23] LABS: Basophils Percent Auto 0.3 % (0.2-1.2); Eosinophils Absolute Auto 0.1 K/mm3 (0-0.3); Eosinophils Percent Auto 0.3 % (0-4.4); Hematocrit 35.2 % (37.0-47.0); Hemoglobin 11.6 g/dL (12.0-15.0); Immature Granulocyte Absolute 0.08 K/mm3 (0.00-0.031); Immature Granulocyte Percent A 0.5 % (0-0.5); Lymphocytes Absolute Auto 1.26 K/mm3 (0.9-3.2); Lymphocytes Percent Auto 8.1 % (18.3-44.2); Mean Corpuscular Hemoglobin 28.9 pg (26-34); Mean Corpuscular Volume 87.6 fl (80-100); Mean Platelet Volume 11.2 fl (7.4-10.4); Monocytes Percent Auto 6.7 % (2.6-8.5); Neutrophils Percent Auto 84.1 % (45.5-73.1); Platelet Count Result 253 k/mm3 (150-375); Red Blood Count 4.02 M/mm3 (4.2-5.4); Red Cell Distribution Width 12.1 % (11.5-14.5); White Blood Count 15.5 K/mm3 (4.5-10.0)
[2024-07-26 14:34] LABS: Alanine Aminotransferase 18 U/L (6-35); Albumin Level 4.2 g/dL (3.5-5.1); Alkaline Phosphatase 64 U/L (38-126); Anion Gap 11 mmol/L (4-12); Aspartate Amino Transferase 20 U/L (14-36); Bilirubin,Total 2.3 mg/dL (0.2-1.3); Blood Urea Nitrogen 7 mg/dL (7-17); Calcium 9.1 mg/dL (8.4-10.2); Carbon Dioxide 22 mmol/L (22-30); Chloride 105 mmol/L (98-107); Estimated CRCL calculation 92 ml/min; Estimated Glomerular Filt Rate > 60; Glucose 86 mg/dL (65-110); Potassium 3.2 mmol/L (3.4-5.0); Sodium 138 mmol/L (137-145)
[2024-07-26] MEDS: ACETAMINOPHEN 325 MG TABLET 650 MG PO ×2 (14:49→17:18)
--- NOTE | 2024-07-26 15:10 | ED.GENADULT ---
HPI - General Adult General Chief complaint: Urogenital-Female Stated complaint: uti Time Seen by Provider: 07/26/24 13:26 History of Present Illness HPI narrative: Patient is a 28-year-old female who presents ER with flank pain and fever. Patient was diagnosed with UTI on . She has been taking Macrobid. Symptoms have progressed to fever. She is having left-sided flank pain. She has nausea vomiting. She also endorses dysuria with urgency. Related Data Home Medications Medication Instructions Recorded Confirmed etonogestrel 0.12 mg-ethinyl 1 vag ring vaginal MONTHLY 06/08/24 06/08/24 estradiol 0.015 mg/24 hr vaginal ring (EnilloRing) Allergies Allergy/AdvReac Type Severity Reaction Status Date / Time No Known Allergies Allergy Verified 06/09/24 13:54 Review of Systems Review of Systems: All systems reviewed & are unremarkable except as noted in HPI and below Constitutional: Constitutional: Reports chills, Reports fatigue and Reports fever(s) Cardiovascular: Cardiovascular: Reports no additional cardiovascular complaints Respiratory: Respiratory: Reports no additional respiratory complaints Gastrointestinal: Gastrointestinal: Denies abdominal pain, Denies diarrhea, Reports nausea and Reports vomiting Genitourinary: Genitourinary: Reports nocturia, Reports dysuria, Reports flank pain and Denies urinary incontinence Musculoskeletal: Musculoskeletal: Reports no additional musculoskeletal complaints [facility] Past Medical History Medical History (Updated 07/26/24 @ 16:16 by Tenzin Cadet MD) Healthy female adult Surgical History Surgical History History of elective History of hemorrhoidectomy History of tubal ligation Social History Social History Social History: Surrogate medical decision maker: Ro Campbell, sister. Code status: Full code. Smoking status: Never smoker Alcohol intake: current Drinks per week: 5 Substance use: never Substance use type: does not use Do You Feel Safe in your Home?: Yes Lack of Transportation: No Lack of Food: Never True Current Housing: I Have Housing Concerned About Future Housing: No Difficulty Paying Gas/Electric Bills: No Difficulty Paying for Meds: No Currently Unemployed: No Education: Decline to Answer Difficulty w/ Childcare or Family Care: No Additional living arrangements comments: Recently . She has 4 children under the age of 8. 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 Spiritual care concerns: No Exam Narrative: GENERAL: Fatigued-appearing, well-nourished, and vomiting. HEAD: Normocephalic, atraumatic. ENT: Mucous membranes moist. CHEST: Clear to auscultation. No respiratory distress. HEART: Regular rate and rhythm. Normal peripheral pulses. ABDOMEN: Soft, nontender, nondistended. Left CVA tenderness. EXTREMITIES: Normal range of motion. No edema. SKIN: Warm, dry, no rash. NEURO: Alert and oriented x3. PSYCH: Normal mood and affect. Course Course Emergency Course: patient given IV fluid. She has pyelonephritis. White count elevated. Failed outpatient antibiotics. Admit for observation. Ceftriaxone given. Vital Signs Vital signs: Vital Signs Temperature 101.2 F H 07/26/24 14:12 Pulse Rate 97 07/26/24 14:12 Blood Pressure 110/72 07/26/24 14:12 Pulse Oximetry 99 07/26/24 14:12 Temperature 101.2 F H 07/26/24 14:12 Pulse Rate 97 07/26/24 14:12 Blood Pressure 110/72 07/26/24 14:12 Pulse Oximetry 99 07/26/24 14:12 Medical Decision Making Vital Signs Vital Signs: Vital Signs Temperature 101.2 F H 07/26/24 14:12 Pulse Rate 97 07/26/24 14:12 Blood Pressure 110/72 07/26/24 14:12 Pulse Oximetry 99 07/26/24 14:12 Temperature 101.2 F H 07/26/24 14:12 Pulse Rate 97 07/26/24 14:12 Blood Pressure 110/72 07/26/24 14:12 Pulse Oximetry 99 07/26/24 14:12 Lab Data 07/26/24 14:15 07/26/24 14:15 Labs: Lab Results 07/26/24 07/26/24 Range/Units 13:35 14:15 WBC 15.5 H (4.5-10.0) K/mm3 RBC 4.02 L (4.2-5.4) M/mm3 Hgb 11.6 L (12.0-15.0) g/dL Hct 35.2 L (37.0-47.0) % MCV 87.6 (80-100) fl MCH 28.9 (26-34) pg MCHC 33.0 (32-36) g/dl RDW 12.1 (11.5-14.5) % Plt Count 253 D (150-375) k/mm3 MPV 11.2 H (7.4-10.4) fl Immature Gran % (Auto) 0.5 (0-0.5) % Neut % (Auto) 84.1 H (45.5-73.1) % Lymph % (Auto) 8.1 L (18.3-44.2) % [place] % (Auto) 6.7 (2.6-8.5) % Eos % (Auto) 0.3 (0-4.4) % Baso % (Auto) 0.3 (0.2-1.2) % Lymph # (Auto) 1.26 (0.9-3.2) K/mm3 [place] # (Auto) 1.0 H (0.1-0.6) K/mm3 Eos # (Auto) 0.1 (0-0.3) K/mm3 Baso # (Auto) 0.0 (0.0-0.1) K/mm3 Abs Immat Gran (auto) 0.08 H (0.00-0.031) K/mm3 Absolute Neuts (auto) 13.0 H (1.3-6.7) K/mm3 Absolute Nucleated RBC 0.000 (0.0-0.012) K/mm3 Nucleated RBC % 0.0 (0.0-0.2) % Sodium 138 (137-145) mmol/L Potassium 3.2 L (3.4-5.0) mmol/L Chloride 105 (98-107) mmol/L Carbon Dioxide 22 (22-30) mmol/L Anion Gap 11 (4-12) mmol/L BUN 7 (7-17) mg/dL Creatinine 0.70 (0.7-1.0) mg/dL Estim Creat Clear Calc 92 ml/min Estimated GFR > 60 (59 - ) Glucose 86 (65-110) mg/dL Calcium 9.1 (8.4-10.2) mg/dL Total Bilirubin 2.3 H (0.2-1.3) mg/dL AST 20 (14-36) U/L ALT 18 (6-35) U/L Alkaline Phosphatase 64 (38-126) U/L Total Protein 8.0 (6.3-8.2) g/dL Albumin 4.2 (3.5-5.1) g/dL Urine Color Dark yellow (Yellow) Urine Appearance Cloudy H (Clear) Urine pH 5.5 (5.0-9.0) Ur Specific [place] 1.020 (1.001-1.035) Urine Protein 2+ H (Negative) mg/dL Urine Glucose (UA) Negative (Negative) mg/dL Urine Ketones 2+ H (Negative) mg/dL Ur Blood (Man) 2+ H (Negative) Urine Nitrate Positive H (Negative) Urine Bilirubin 1+ H (Negative) Urine Urobilinogen 1.0 (<2.0) mg/dL Add Ur Microanalysis Reviewed Leukocyte Esterase Rfl 1+ H (Negative) TANYA/UL Urine RBC 6-10 H (0-2) /hpf Urine WBC 11-20 H (0-3) /hpf Ur Squamous Epith Cells Many H (Few) /hpf Urine Bacteria 2+ H /hpf Urine Casts 0-2 POC Urine HCG, Qual Negative (Negative) Discharge Plan Discharge Clinical Impression: Pyelonephritis Patient Disposition: Still a Patient Condition: Stable Prescriptions: No Action etonogestrel-ethinyl estradiol [EnilloRing] 0.12-0.015 mg/24 hr ring 1 vag ring VAGINAL MONTHLY azithromycin [Zithromax] 250 mg Tablet 500 mg PO DAILY Qty: 9 0RF amoxicillin-pot clavulanate 875-125 mg tablet 1 tablet PO Q12H 9 Days Qty: 18 0RF Follow-up/Referrals: Yamila Lemus, SALES SECRETARY-C [Primary Care Provider] -
[2024-07-26 15:18] LABS: Add Urine Microscopic? YES; Appearance Urine Cloudy (Clear); Bacteria Urine 2+ /hpf; Bilirubin Urine 1+ (Negative); Blood Urine 2+ (Negative); Color Urine Dark Yellow (Yellow); Glucose Urine UA Negative (Negative); Ketones Urine 2+ mg/dL (Negative); Leukocyte Esterase Ur 1+ LEU/UL (Negative); Need Manual Microscopic Reviewed; Nitrate Urine Positive (Negative); Non Pathogenic Casts 0-2; Protein Urine 2+ mg/dL (Negative); Squamous Epithelial Cell Urine Many /hpf (Few); pH Urine 5.5 (5.0-9.0)
[2024-07-26 16:37] VITALS: BP 115/75; PULSE 98; RESP 19; TEMP 37.9; O2SAT 97
[2024-07-26 17:09] VITALS: BP 114/69; PULSE 88; RESP 16; TEMP 36.3; O2SAT 98
--- NOTE | 2024-07-26 17:15 | ADMGEN ---
This patient, Mita Bush, was admitted to Medical Room 253-01. Patient/family oriented to hospital policies and general routines including ID bracelet, bed and alarms, visiting hours, pain management, procedures, bathroom and other care routines, personal items, smoking policy, room service/diet, and visiting hours. Information on how to activate the Rapid Response Team has been discussed. Patient/Family are encouraged to report perceived risks to care and to ask questions if they do not understand what they are told or what they should do.
[2024-07-26] MEDS: SODIUM CHLORIDE 0.9% IV 1,000 ML 125 ML IV CONT (17:21)
[2024-07-26 17:28] VITALS: BMI 25.7
[2024-07-26] MEDS: IBUPROFEN 600 MG TABLET PO (20:04)
--- NOTE | 2024-07-26 20:37 | P.HP_ITS ---
H&P: HPI History of Present Illness Date/Time: 07/26/24 20:37 Chief Complaint: UTI Narrative: This is a 28-year-old female with no significant past medical history who presented to the hospital with fever flank pain. Patient states that she initially went to [facility] urgent [facility] on and was started on Macrobid she took 2 days worth of antibiotic and then started in with the fever, headache, dysuria, urgency,increased flank pain, nausea, vomiting since this morning. She came here to [facility] for further evaluation. She also noted that they did do a urine culture there and that is pending. workup in the hospital included labs which showed a white blood cell count of 15.5, RBC 4.02, hemoglobin 11.6, potassium 3.2, total bili 2.3. A UA was obtained which showed cloudy urine appearance, 2+ urine protein, 2+ urine ketone, 2+ urine blood, positive nitrate, 1+ urine bilirubin, 1+ leukocyte, 6-10 rbc's, 11-20 wbc's, many urine squamous epithelial cells, 2+ urine bacteria. A urine culture was obtained and is pending. Patient was given 1 L of normal saline, Zofran, morphine, and started on Rocephin while in the ED. Review of Systems Review of Systems: All systems reviewed & are unremarkable except as noted in HPI and below Constitutional: Constitutional: Reports as per HPI and Reports no additional constitutional complaints Eyes: Eyes: Reports as per HPI and Reports no additional eye complaints ENT: Reports system reviewed and no additional complaints, except as documented and Reports as per HPI Cardiovascular: Cardiovascular: Reports as per HPI and Reports no additional cardiovascular complaints Respiratory: Respiratory: Reports as per HPI and Reports no additional respiratory complaints Gastrointestinal: Gastrointestinal: Reports as per HPI and Reports no additional gastrointestinal complaints Genitourinary: Genitourinary: Reports no additional female genitourinary complaints and Reports as per HPI Musculoskeletal: Musculoskeletal: Reports no additional musculoskeletal complaints and Reports as per HPI Integumentary/Breasts: Skin/Breast: Reports system reviewed and no additional complaints, except as docu and Reports as per HPI Neurologic: Reports system reviewed and no additional complaints, except as documented and Reports as per HPI Psychiatric: Psychiatric: Reports no additional psychiatric complaints and Reports as per HPI [facility] Past Medical History Medical History Healthy female adult Surgical History Surgical History History of elective History of hemorrhoidectomy History of tubal ligation Family History Family History Grandparent Diabetes mellitus Social History Social History Social History: Surrogate medical decision maker: Ro Campbell, sister. Code status: Full code. Smoking status: Never smoker Alcohol intake: current Drinks per week: 21 Substance use: current Substance use type: marijuana Do You Feel Safe in your Home?: Yes Lack of Transportation: No Lack of Food: Never True Current Housing: I Have Housing Concerned About Future Housing: No Difficulty Paying Gas/Electric Bills: No Difficulty Paying for Meds: No Currently Unemployed: No Education: Associate Degree Difficulty w/ Childcare or Family Care: No Additional living arrangements comments: Recently . She has 4 children under the age of 8. Additional occupation/education comments: Works at a [employer]. Spiritual care concerns: No Meds Home Medications and Allergies Home Medications Medication Instructions Recorded Confirmed Type etonogestrel 0.12 mg-ethinyl 1 vag ring vaginal MONTHLY 06/08/24 07/26/24 History estradiol 0.015 mg/24 hr vaginal ring (EnilloRing) nitrofurantoin 1 cap PO Q12H 07/26/24 07/26/24 History monohydrate/macrocrystals 100 mg capsule Allergies Allergy/AdvReac Type Severity Reaction Status Date / Time No Known Allergies Allergy Verified 07/26/24 17:24 Vital Signs Vital Signs - 24 hr 07/26/24 14:12 07/26/24 16:37 07/26/24 17:09 Temperature 101.2 F H 100.2 F H 97.3 F L Pulse Rate 97 98 88 Respiratory Rate 19 16 Blood Pressure 110/72 115/75 114/69 Pulse Oximetry 99 97 98 Oxygen Delivery 07/26/24 17:45 Temperature Pulse Rate Respiratory Rate Blood Pressure Pulse Oximetry Oxygen Delivery Room Air Exam Narrative: General: In no acute distress, well nourished Head: atraumatic, no encephalopathy Eyes: EOMI, PERRLA, sclera clear ENT: moist mucous membranes, nasal passages clear, reports headache Neck: supple, no JVD, no adenopathy, trachea midline Cardiac: Normal S1 and S2. No murmur, gallops or friction rubs, peripheral pulses intact. Respiratory: Lungs clear to auscultation, no adventitious lung sounds, currently on room air Gastrointestinal: soft, non-distended, non-tender, normoactive bowel sounds. : voiding without difficulty. Extremities: moves all extremities well, no edema, good ROM, strength 5/5 Skin: clean, dry, intact. No wounds or lesions. Neuro: Alert and oriented x4, cranial nerves intact, no neuro deficits. Psych: normal mood, normal affect, interactive H&P: Results Labs Labs: Short CBC 07/26/24 Range/Units 14:15 WBC 15.5 H (4.5-10.0) K/mm3 Hgb 11.6 L (12.0-15.0) g/dL Hct 35.2 L (37.0-47.0) % Plt Count 253 D (150-375) k/mm3 BMP 07/26/24 14:15 Sodium 138 Potassium 3.2 L Chloride 105 Carbon Dioxide 22 BUN 7 Creatinine 0.70 Glucose 86 Calcium 9.1 Liver Function 07/26/24 Range/Units 14:15 Total Bilirubin 2.3 H (0.2-1.3) mg/dL AST 20 (14-36) U/L ALT 18 (6-35) U/L Alkaline Phosphatase 64 (38-126) U/L Albumin 4.2 (3.5-5.1) g/dL Urine 07/26/24 Range/Units 14:15 Urine Color Dark yellow (Yellow) Urine Appearance Cloudy H (Clear) Urine pH 5.5 (5.0-9.0) Ur Specific [place] 1.020 (1.001-1.035) Urine Protein 2+ H (Negative) mg/dL Urine Glucose (UA) Negative (Negative) mg/dL Assessment and Plan Assessment and plan (1) Sepsis: Qualifiers: Sepsis acute organ dysfunction status: unspecified Sepsis type: sepsis due to unspecified organism Qualified Code(s): A41.9 - Sepsis, unspecified organism Code(s): A41.9 - Sepsis, unspecified organism Status: Acute Assessment and Plan: --Initially meeting sepsis criteria with an elevated WBC 15.5, temp of 101.2, HR 97-98, and known source of infection being urinary tract infection. Patient was given 1L of NS while in the ER. Temp and heart rate trending down. * UA showing cloudy urine appearance, 2+ urine protein, 2+ urine ketone, 2+ urine blood, positive nitrate, 1+ urine bilirubin, 1+ leukocyte, 6-10 urine RBC, 11-20 urine WBC, many urine squamous epithelial cells, 2+ urine bacteria. * Urine culture was obtained and is pending * Blood cultures were not obtained initially, will obtain now however she has received antibiotics prior * continue Rocephin * Will obtain CT scan of the abdomen/pelvis as she was here with sepsis last month on 06/08/24 due to retained products of conception after having an elective complicated by pneumonia. She had a successful D& C under US guidance on 06/09/24 and was then discharged on 06/10/24. Her test this admission was negative. (2) Pyelonephritis: Code(s): N12 - Tubulo-interstitial nephritis, not specified as acute or chronic Status: Acute Assessment and Plan: See above plan of care (3) Hypokalemia: Code(s): E87.6 - Hypokalemia Status: Acute Assessment and Plan: * Potassium 3.2 * 40 meq of KCL given * Continue to trend (4) Hyperbilirubinemia: Code(s): E80.6 - Other disorders of bilirubin metabolism Status: Acute Assessment and Plan: * Total bili 2.3 * Will trend for now Quality VTE Prophylaxis VTE prophylaxis: mechanical ordered Hospitalist [facility] Advance Care Plan I have confirmed that the patient's Advanced Care Plan is present, code status is documented, or surrogate decision maker is listed in patient medical record.: Yes Medication Reconciliation I have utilized all available resources to obtain, update and review the patients current medications (includes all prescriptions, OTC, herbals, cannabis, and nutritional supplements).: Yes
[2024-07-26] MEDS: POTASSIUM CHLORIDE 20 MEQ ER TABLET 40 MEQ PO (21:16)
[2024-07-26 21:22] LABS: Iron 16 ug/dL (37-170)
[2024-07-26 21:32] LABS: Percent Iron Saturation 5 % (20-50)
[2024-07-26 21:42] VITALS: BP 104/60; PULSE 88; RESP 18; TEMP 36.9; O2SAT 98
[2024-07-26 21:54] LABS: Thyroid Stimulating Hormone 0.715 uIU/mL (0.465-4.680)
[2024-07-26 22:31] LABS: Folic Acid 5.7 ng/mL (2.76->20)
[2024-07-26] MEDS: ACETAMINOPHEN/ASPIRIN/CAFFEINE 250-250-65 MG TABLET 1 TABLET PO (22:56)
[2024-07-27] VITALS: RESP 18
[2024-07-27] MEDS: SODIUM CHLORIDE 0.9% IV 1,000 ML 125 ML IV CONT ×3 (02:24→20:09)
[2024-07-27 05:45] VITALS: BP 98/57; PULSE 84; RESP 18; TEMP 36.7; O2SAT 100
[2024-07-27 06:18] LABS: Basophils Absolute Auto 0.1 K/mm3 (0.0-0.1); Basophils Percent Auto 0.5 % (0.2-1.2); Eosinophils Absolute Auto 0.2 K/mm3 (0-0.3); Eosinophils Percent Auto 1.7 % (0-4.4); Hematocrit 31.9 % (37.0-47.0); Hemoglobin 10.4 g/dL (12.0-15.0); Immature Granulocyte Absolute 0.04 K/mm3 (0.00-0.031); Immature Granulocyte Percent A 0.4 % (0-0.5); Lymphocytes Absolute Auto 1.83 K/mm3 (0.9-3.2); Lymphocytes Percent Auto 18.8 % (18.3-44.2); Mean Corpuscular HGB Conc 32.6 g/dl (32-36); Mean Corpuscular Hemoglobin 29.1 pg (26-34); Mean Corpuscular Volume 89.1 fl (80-100); Mean Platelet Volume 11.2 fl (7.4-10.4); Monocytes Absolute Auto 0.8 K/mm3 (0.1-0.6); Monocytes Percent Auto 7.8 % (2.6-8.5); Neutrophils Absolute Auto 6.9 K/mm3 (1.3-6.7); Neutrophils Percent Auto 70.8 % (45.5-73.1); Platelet Count Result 223 k/mm3 (150-375); Red Blood Count 3.58 M/mm3 (4.2-5.4); Red Cell Distribution Width 12.2 % (11.5-14.5); White Blood Count 9.7 K/mm3 (4.5-10.0)
[2024-07-27 06:29] LABS: Alanine Aminotransferase 15 U/L (6-35); Albumin Level 3.3 g/dL (3.5-5.1); Alkaline Phosphatase 58 U/L (38-126); Anion Gap 7 mmol/L (4-12); Aspartate Amino Transferase 17 U/L (14-36); Bilirubin,Total 1.5 mg/dL (0.2-1.3); Blood Urea Nitrogen 5 mg/dL (7-17); Calcium 8.2 mg/dL (8.4-10.2); Carbon Dioxide 23 mmol/L (22-30); Chloride 110 mmol/L (98-107); Estimated CRCL calculation 106 ml/min; Estimated Glomerular Filt Rate > 60; Glucose 90 mg/dL (65-110); Potassium 3.8 mmol/L (3.4-5.0); Sodium 140 mmol/L (137-145)
[2024-07-27 08:21] VITALS: O2SAT 98
--- NOTE | 2024-07-27 12:21 | PM.IMPN ---
Progress Note: A&P Assessment and Plan (1) Sepsis: Qualifiers: Sepsis acute organ dysfunction status: unspecified Sepsis type: sepsis due to unspecified organism Qualified Code(s): A41.9 - Sepsis, unspecified organism Code(s): A41.9 - Sepsis, unspecified organism Status: Acute Assessment and Plan: --Patient meeting sepsis criteria on admission. WBC 15.5, temp of 101.2, UA +ve for UTI. - Patient given 1L of NS in the ER. Temp and heart rate currently wnl. Urine and blood cultures pending. Blood cultures were not obtained initially, and obtained after a dose of IV antibiotics. continue Rocephin CT abd/pelvis consistent with bilateral pyelonephritis. WBC's trending down and no fevers noted. (2) Pyelonephritis: Code(s): N12 - Tubulo-interstitial nephritis, not specified as acute or chronic Status: Acute Assessment and Plan: - CT abd/pelvis consistent with bilateral pyelonephritis. - Follow cultures. - Continue Rocephin for now. (3) Hypokalemia: Code(s): E87.6 - Hypokalemia Status: Acute Assessment and Plan: Replaced and currently wnl. Continue to trend. (4) Hyperbilirubinemia: Code(s): E80.6 - Other disorders of bilirubin metabolism Status: Acute Assessment and Plan: Unclear etiology. Trending down and we'll continue to follow; 2.3>>1.5 Time Spent With Patient Time with patient: 15 - 25 minutes Subjective Date/time seen: 07/27/24 12:21 Patient calm on bedrest and states feels fine. Denies any acute distress including dysuria, hematuria, lower abdominal pain, fevers or chills. Interval history: Patient presented to the hospital with fever and flank pain. Patient initially went to [facility] on and was started on Macrobid which she took for 2 days then fever, headache, dysuria, urgency,increased flank pain, nausea, vomiting started. Workup labs here were consistent with UTI, with her CT abdomen pelvis consistent with bilateral pyelonephritis. Patient is currently on Rocephin, pending blood and urine cultures. Review of Systems Review of Systems: All systems reviewed & are unremarkable except as noted in HPI and below Constitutional: Constitutional: Reports as per HPI and Reports no additional constitutional complaints Eyes: Eyes: Reports as per HPI and Reports no additional eye complaints ENT: Reports system reviewed and no additional complaints, except as documented and Reports as per HPI Cardiovascular: Cardiovascular: Reports as per HPI and Reports no additional cardiovascular complaints Respiratory: Respiratory: Reports as per HPI and Reports no additional respiratory complaints Gastrointestinal: Gastrointestinal: Reports as per HPI and Reports no additional gastrointestinal complaints Genitourinary: Genitourinary: Reports no additional female genitourinary complaints and Reports as per HPI Musculoskeletal: Musculoskeletal: Reports no additional musculoskeletal complaints and Reports as per HPI Integumentary/Breasts: Skin/Breast: Reports system reviewed and no additional complaints, except as docu and Reports as per HPI Neurologic: Reports system reviewed and no additional complaints, except as documented and Reports as per HPI Psychiatric: Psychiatric: Reports no additional psychiatric complaints and Reports as per HPI Exam Narrative: General: In no acute distress, well nourished Head: atraumatic, no encephalopathy Eyes: EOMI, PERRLA, sclera clear ENT: moist mucous membranes, nasal passages clear, reports headache Neck: supple, no JVD, no adenopathy, trachea midline Cardiac: Normal S1 and S2. No murmur, gallops or friction rubs, peripheral pulses intact. Respiratory: Lungs clear to auscultation, currently on room air Gastrointestinal: soft, non-distended, non-tender, normoactive bowel sounds. : voiding without difficulty. Extremities: moves all extremities well, no edema, good ROM, strength 5/5 Skin: clean, dry, intact. No wounds or lesions. Neuro: Alert and oriented x4, cranial nerves intact, no neuro deficits. Psych: normal mood, normal affect, interactive Objective Data Vital Signs Vital Signs: Vital Signs - 24 hr 07/26/24 14:12 07/26/24 16:37 07/26/24 17:09 Temperature 101.2 F H 100.2 F H 97.3 F L Pulse Rate 97 98 88 Respiratory Rate 19 16 Blood Pressure 110/72 115/75 114/69 Pulse Oximetry 99 97 98 Oxygen Delivery Fraction of Inspired Oxygen 07/26/24 17:45 07/26/24 21:42 07/26/24 19:56 Temperature 98.5 F Pulse Rate 88 Respiratory Rate 18 Blood Pressure 104/60 Pulse Oximetry 98 Oxygen Delivery Room Air Room Air Fraction of Inspired Oxygen 07/27/24 00:00 07/27/24 05:45 07/27/24 08:21 Temperature 98.1 F Pulse Rate 84 Respiratory Rate 18 18 Blood Pressure 98/57 L Pulse Oximetry 100 98 Oxygen Delivery Room Air Fraction of Inspired Oxygen 07/27/24 08:09 Temperature Pulse Rate Respiratory Rate Blood Pressure Pulse Oximetry Oxygen Delivery Room Air Fraction of Inspired Oxygen Intake/Output Intake/Output: Intake & Output 07/24/24 07/25/24 07/26/24 07/27/24 23:59 23:59 23:59 23:59 Intake Total 1050 2470 Balance 1050 2470 Meds/Results Medications: Active Medications Generic Name Dose Route Start Last Admin Trade Name Freq PRN Reason Stop Dose Admin Acetaminophen 650 mg 07/26/24 16:09 07/26/24 17:18 Acetaminophen 325 Mg Tablet PO 650 mg Q4H PRN Administration Mild Pain (1-3) or Fever Acetaminophen/Aspirin/Caffeine 1 tablet 07/26/24 21:26 07/26/24 22:56 Acetaminophen/Aspirin/Caffeine 250-250-65 Mg Tablet PO 1 tablet Q6H PRN Administration Headache Hydrocodone Bitart/Acetaminophen 1 tab 07/26/24 16:09 Hydrocodone/Acetaminophen (*Crx) 5-325 Mg Tablet PO Q4H PRN Pain Rated 4-6 Ceftriaxone Sodium 1 gm in 50 mls @ 100 mls/hr 07/27/24 09:00 07/27/24 08:39 Rocephin 1 Gm/Ns 50 Ml IVPB Infused QAM LEONARDO Infusion Sodium Chloride 1,000 mls @ 125 mls/hr 07/26/24 16:10 07/27/24 11:06 Normal Saline Iv IV CONT 125 mls/hr .Q8H LEONARDO Administration Morphine Sulfate 2 mg 07/26/24 16:09 Morphine Sulfate (*Crx) 2 Mg/Ml Inj IV PUSH Q2H PRN Pain Rated 7-10 Ondansetron HCl 4 mg 07/26/24 16:09 Ondansetron Inj 4 Mg/2 Ml Vial IV PUSH Q4H PRN Nausea Labs Labs: Laboratory Results - last 24 hr 07/26/24 07/26/24 07/26/24 13:35 14:15 21:06 WBC 15.5 H RBC 4.02 L Hgb 11.6 L Hct 35.2 L MCV 87.6 MCH 28.9 MCHC 33.0 RDW 12.1 Plt Count 253 D MPV 11.2 H Immature Gran % (Auto) 0.5 Neut % (Auto) 84.1 H Lymph % (Auto) 8.1 L Evans % (Auto) 6.7 Eos % (Auto) 0.3 Baso % (Auto) 0.3 Lymph # (Auto) 1.26 Evans # (Auto) 1.0 H Eos # (Auto) 0.1 Baso # (Auto) 0.0 Abs Immat Gran (auto) 0.08 H Absolute Neuts (auto) 13.0 H Absolute Nucleated RBC 0.000 Nucleated RBC % 0.0 Sodium 138 Potassium 3.2 L Chloride 105 Carbon Dioxide 22 Anion Gap 11 BUN 7 Creatinine 0.70 Estim Creat Clear Calc 92 Estimated GFR > 60 Glucose 86 Calcium 9.1 Iron 16 L TIBC 304 % Saturation 5 L Ferritin 99.20 Total Bilirubin 2.3 H AST 20 ALT 18 Alkaline Phosphatase 64 Total Protein 8.0 Albumin 4.2 Vitamin B12 350.0 Folate 5.7 TSH 0.715 Urine Color Dark yellow Urine Appearance Cloudy H Urine pH 5.5 Ur Specific [place] 1.020 Urine Protein 2+ H Urine Glucose (UA) Negative Urine Ketones 2+ H Ur Blood (Man) 2+ H Urine Nitrate Positive H Urine Bilirubin 1+ H Urine Urobilinogen 1.0 Add Ur Microanalysis Reviewed Leukocyte Esterase Rfl 1+ H Urine RBC 6-10 H Urine WBC 11-20 H Ur Squamous Epith Cells Many H Urine Bacteria 2+ H Urine Casts 0-2 POC Urine HCG, Qual Negative 07/27/24 05:59 WBC 9.7 RBC 3.58 L Hgb 10.4 L Hct 31.9 L MCV 89.1 MCH 29.1 MCHC 32.6 RDW 12.2 Plt Count 223 MPV 11.2 H Immature Gran % (Auto) 0.4 Neut % (Auto) 70.8 Lymph % (Auto) 18.8 Evans % (Auto) 7.8 Eos % (Auto) 1.7 Baso % (Auto) 0.5 Lymph # (Auto) 1.83 Evans # (Auto) 0.8 H Eos # (Auto) 0.2 Baso # (Auto) 0.1 Abs Immat Gran (auto) 0.04 H Absolute Neuts (auto) 6.9 H Absolute Nucleated RBC 0.000 Nucleated RBC % 0.0 Sodium 140 Potassium 3.8 Chloride 110 H Carbon Dioxide 23 Anion Gap 7 BUN 5 L Creatinine 0.60 L Estim Creat Clear Calc 106 Estimated GFR > 60 Glucose 90 Calcium 8.2 L Iron TIBC % Saturation Ferritin Total Bilirubin 1.5 H AST 17 ALT 15 Alkaline Phosphatase 58 Total Protein 7.0 Albumin 3.3 L Vitamin B12 Folate TSH Urine Color Urine Appearance Urine pH Ur Specific [place] Urine Protein Urine Glucose (UA) Urine Ketones Ur Blood (Man) Urine Nitrate Urine Bilirubin Urine Urobilinogen Add Ur Microanalysis Leukocyte Esterase Rfl Urine RBC Urine WBC Ur Squamous Epith Cells Urine Bacteria Urine Casts POC Urine HCG, Qual Imaging My impression: CT Abdomen/Pelvis: 07/27/24 IMPRESSION: 1. Bilateral pyelonephritis. 2. 5.0 cm cyst in right ovary, likely a follicular cyst. Quality VTE Prophylaxis VTE prophylaxis: mechanical ordered Hospitalist [facility] Advance Care Plan I have confirmed that the patient's Advanced Care Plan is present, code status is documented, or surrogate decision maker is listed in patient medical record.: Yes Medication Reconciliation I have utilized all available resources to obtain, update and review the patients current medications (includes all prescriptions, OTC, herbals, cannabis, and nutritional supplements).: Yes
[2024-07-27] MEDS: ACETAMINOPHEN 325 MG TABLET 650 MG PO (12:26)
[2024-07-27 14:00] VITALS: BP 98/57; PULSE 82; RESP 16; TEMP 37; O2SAT 100
[2024-07-27 20:04] VITALS: BP 115/76; PULSE 79; RESP 16; TEMP 37.1; O2SAT 100
[2024-07-27] MEDS: HYDROcodone/acetaminophen (*CRX) 5-325 MG TABLET 1 TAB PO (20:11)
[2024-07-28 04:30] VITALS: BP 101/68; PULSE 71; RESP 16; TEMP 36.4; O2SAT 98
[2024-07-28 06:17] LABS: Basophils Percent Auto 0.5 % (0.2-1.2); Eosinophils Absolute Auto 0.1 K/mm3 (0-0.3); Eosinophils Percent Auto 1.4 % (0-4.4); Hematocrit 31.6 % (37.0-47.0); Hemoglobin 10.2 g/dL (12.0-15.0); Immature Granulocyte Absolute 0.03 K/mm3 (0.00-0.031); Immature Granulocyte Percent A 0.4 % (0-0.5); Lymphocytes Absolute Auto 2.03 K/mm3 (0.9-3.2); Lymphocytes Percent Auto 27.7 % (18.3-44.2); Mean Corpuscular HGB Conc 32.3 g/dl (32-36); Mean Corpuscular Hemoglobin 28.7 pg (26-34); Mean Platelet Volume 10.7 fl (7.4-10.4); Monocytes Absolute Auto 0.4 K/mm3 (0.1-0.6); Monocytes Percent Auto 5.9 % (2.6-8.5); Neutrophils Absolute Auto 4.7 K/mm3 (1.3-6.7); Neutrophils Percent Auto 64.1 % (45.5-73.1); Platelet Count Result 245 k/mm3 (150-375); Red Blood Count 3.55 M/mm3 (4.2-5.4); Red Cell Distribution Width 12.3 % (11.5-14.5); White Blood Count 7.3 K/mm3 (4.5-10.0)
[2024-07-28 06:29] LABS: Alanine Aminotransferase 16 U/L (6-35); Albumin Level 3.3 g/dL (3.5-5.1); Alkaline Phosphatase 54 U/L (38-126); Anion Gap 6 mmol/L (4-12); Aspartate Amino Transferase 17 U/L (14-36); Blood Urea Nitrogen 4 mg/dL (7-17); Calcium 8.4 mg/dL (8.4-10.2); Carbon Dioxide 24 mmol/L (22-30); Chloride 108 mmol/L (98-107); Estimated CRCL calculation 106 ml/min; Estimated Glomerular Filt Rate > 60; Glucose 89 mg/dL (65-110); Potassium 3.4 mmol/L (3.4-5.0); Sodium 138 mmol/L (137-145)
[2024-07-28 08:00] VITALS: BP 104/62; PULSE 68; RESP 17; TEMP 36.4; O2SAT 98
[2024-07-28] MEDS: SODIUM CHLORIDE 0.9% IV 1,000 ML 125 ML IV CONT (08:22)
[2024-07-28] MEDS: levoFLOXacin 750 MG TABLET PO (11:21)
--- NOTE | 2024-07-28 13:17 | P.DS_ITS ---
DS: Admitting Diagnosis Discharge Date 07/28/24 Admitting Diagnosis Pyelonephritis Sepsis DS: Discharge Diagnosis Discharge Diagnosis (1) Sepsis: Qualifiers: Sepsis acute organ dysfunction status: unspecified Sepsis type: sepsis due to unspecified organism Qualified Code(s): A41.9 - Sepsis, unspecified organism Code(s): A41.9 - Sepsis, unspecified organism Status: Resolved Assessment and Plan: --Patient meeting sepsis criteria on admission. WBC 15.5, temp of 101.2, UA +ve for UTI. - Patient given 1L of NS in the ER. Temp and heart rate currently wnl. * Urine and blood cultures pending. * Blood cultures were not obtained initially, and obtained after a dose of IV antibiotics. * continue Rocephin * CT abd/pelvis consistent with bilateral pyelonephritis. * WBC's trending down and no fevers noted. 07/28/24: Date of discharge - Pt's sepsis resolved and she has normal VS and labs today. She has been given Rocephin for IV coverage while here and has received a first dose of Levaquin po. Her urine culture has resulted as final and is negative for any growth. Blood cultures are negative to date. Pt feels improved overall and wants to go home. She has been tolerating an oral diet. (2) Pyelonephritis: Code(s): N12 - Tubulo-interstitial nephritis, not specified as acute or chronic Status: Acute Assessment and Plan: - CT abd/pelvis consistent with bilateral pyelonephritis. - Follow cultures. - Continue Rocephin for now. 07/28/24: Date of discharge - See #1. Transition to oral Levaquin for one week and follow up with PCP. (3) Hypokalemia: Code(s): E87.6 - Hypokalemia Status: Resolved Assessment and Plan: * Replaced and currently wnl. * Continue to trend. 07/28/24: Date of discharge - Resolved on date of discharge. (4) Hyperbilirubinemia: Code(s): E80.6 - Other disorders of bilirubin metabolism Status: Resolved Assessment and Plan: * Unclear etiology. * Trending down and we'll continue to follow; 2.3>>1.5 07/28/24: Date of discharge - Resolved as of date of discharge. DS: Summary Hospital Course Reason for hospitalization: Sepsis and Pyelonephritis Hospital Course: This very pleasant 28-year-old female patient was admitted to the hospital July 26, 2024 complaints of fever and pain upon presentation to the emergency room. Patient recently been on Macrobid for urinary tract infection that was found became weak Urgent Care. She had taken 2 days and the total does when she had an increasing pain, developed fever and vomiting. In the emergency room she was found to be septic with a CT showing bilateral pyelonephritis. Rocephin IV was initiated and patient was admitted to the hospital further evaluation and management. Also upon presentation to the emergency room patient had initial increase in bilirubin that was nonspecific but has resolved during her hospitalization. Her urine culture has resulted as negative for any growth. Preliminary blood cultures remain negative. Patient's white blood cell count has returned to normal and she has unremarkable metabolic panels. She is no longer meeting sepsis criteria, is tolerating oral intake without difficulty and has had no further nausea, vomiting or diarrhea patient has also been afebrile. Shared decision making was performed with the patient the bedside and she like to go home as she is feeling improved. Given the resolution of sepsis and n egative cultures to this point as well as final urine culture negative patient is transition to a dose of oral Levaquin today that will be continued for 7 days and discharged home to follow up with primary care provider. Patient is agreeable to this plan of care and verbalized she will return to the emergency room should she have any recurrence of worsening symptoms. Status at Discharge Cognitive/behavioral status at discharge: At baseline Functional status at discharge: independent ambulation Overall status at discharge: patient is back to baseline Time Spent with Patient Time attestation: Total time spent providing and/or coordinating discharge services: Time spent: Less than 30 minutes Specific discharge activities: Follow up, lab review, VS review, POC for discharge and return to ER instructions and precautions. Exam Narrative: General: In no acute distress, well nourished Head: atraumatic, no encephalopathy Eyes: EOMI, PERRLA, sclera clear ENT: moist mucous membranes, nasal passages clear, reports headache Neck: supple, no JVD, no adenopathy, trachea midline Cardiac: Normal S1 and S2. No murmur, gallops or friction rubs, peripheral pulses intact. Respiratory: Lungs clear to auscultation, currently on room air Gastrointestinal: soft, non-distended, non-tender, normoactive bowel sounds. : voiding without difficulty. Extremities: moves all extremities well, no edema, good ROM, strength 5/5 Skin: clean, dry, intact. No wounds or lesions. Neuro: Alert and oriented x4, cranial nerves intact, no neuro deficits. Psych: normal mood, normal affect, interactive DS: Data Data Completed and Pending Completed studies during hospitalization: ITS Impressions Abdomen/Pelvis CT 07/27/24 12:20 IMPRESSION: 1. Bilateral pyelonephritis. 2. 5.0 cm cyst in right ovary, likely a follicular cyst. Labs on day of discharge: Labs from last 24 hours 07/28/24 06:07 WBC 7.3 RBC 3.55 L Hgb 10.2 L Hct 31.6 L MCV 89.0 MCH 28.7 MCHC 32.3 RDW 12.3 Plt Count 245 MPV 10.7 H Immature Gran % (Auto) 0.4 Neut % (Auto) 64.1 Lymph % (Auto) 27.7 [place] % (Auto) 5.9 Eos % (Auto) 1.4 Baso % (Auto) 0.5 Lymph # (Auto) 2.03 [place] # (Auto) 0.4 Eos # (Auto) 0.1 Baso # (Auto) 0.0 Abs Immat Gran (auto) 0.03 Absolute Neuts (auto) 4.7 Absolute Nucleated RBC 0.000 Nucleated RBC % 0.0 Sodium 138 Potassium 3.4 Chloride 108 H Carbon Dioxide 24 Anion Gap 6 BUN 4 L Creatinine 0.60 L Estim Creat Clear Calc 106 Estimated GFR > 60 Glucose 89 Calcium 8.4 Total Bilirubin 1.0 AST 17 ALT 16 Alkaline Phosphatase 54 Total Protein 7.0 Albumin 3.3 L Preliminary micro results at discharge 07/26/24 22:45 Blood Culture - Preliminary Blood 07/26/24 22:45 Blood Culture - Preliminary Blood Discharge Plan Discharge Attending physician on discharge: Ellyn Alcaraz Discharging Clinician: Ellyn Alcaraz Activity: as tolerated Diet: as tolerated and regular Discharge Medications: New levofloxacin 750 mg tablet 750 mg PO DAILY Qty: 7 0RF Continued etonogestrel-ethinyl estradiol [EnilloRing] 0.12-0.015 mg/24 hr ring 1 vag ring VAGINAL MONTHLY Discontinued nitrofurantoin monohyd/m-cryst 100 mg capsule 1 cap PO Q12H Date of admission: 07/27/24 13:22 Primary Care Provider: Yamila Lemus Admitting Provider: Husam Murillo Attending physician on admission: Ellyn Alcaraz Condition: Stable Quality VTE Prophylaxis VTE prophylaxis: mechanical ordered Hospitalist MIPS Heart Failure (Exclusion) Patient has history of Heart Transplant or Left Ventricular Assistive Device?: No IF YES, STOP HERE Heart Failure (Qualifier) Patient has current or prior documentation of LVEF less than or equal to 40%, or mod/servere depressed LVSF?: No IF NO, STOP HERE
== END 2024-07-28 14:45 | disposition home or self-care (01) | DRG 720 ==
LOC: ANHED 16:45 → ANH2MED 16:48
PROVIDERS: Nurse Practitioner Acute Care; Admitting Provider Internal Medicine; Emergency Provider Emergency Medicine; PCP Nurse Practitioner Family; Visit Provider Nurse Practitioner Adult Health
DX: A41.9 Sepsis, unspecified organism (principal); N12 Tubulo-interstitial nephritis, not specified as acute or chronic; E87.6 Hypokalemia; E80.6 Other disorders of bilirubin metabolism
CPT/HCPCS: 36415; 74177; 80053; 81001; 81025; 82607; 82728; 82746; 83540; 83550; 84443; 85025; 87040; 87086; 96361; 96365; 96375; 99285; A9270; G0378; G0379; J0696; J2270; J2405; J7030; Q9967

== ENCOUNTER 2024-12-03 08:37 | Emergency (ER) | payer OTHER, SELFPAY ==
[2024-12-03 08:38] VITALS: BP 138/89; PULSE 88; RESP 16; TEMP 36.9; O2SAT 100
--- OUTSIDE RECORDS SUMMARY | 2024-12-03 08:55 | XMS_ITS | Data Portability ---
Author Organization [employer] , [facility] Address [address] [place] [address] Assessment No assessment recorded. Plan of Treatment Reminders Order Date Submit Date Provider Last Modified By Organization Details Last Modified Time Details Appointments None recorded. Lab hemoglobin A1c, QN, blood 2023 024 We, [address] [place], [address], 4 10:17:31 abo group + rh type, blood 2023 024 [facility], [address] [facility], [place], [address], 4 16:19:18 CBC w/ auto diff 2023 024 We, [address] [place], [address], 4 11:10:03 CT + NG DNA, PCR, unspecified specimen 2023 024 We, [address] [place], [address], 4 12:50:40 drug of abuse panel, urine 2023 024 We, [address] [place], [address], 4 15:46:54 obstetric screen + HIV, serum or blood 2023 024 [facility], [address] [place] [address], [address], 4 12:17:29 measles igg Ab, serum 2023 024 [facility], [address] [place], [address], 4 16:19:16 culture, urine 2023 024 [facility], [address] [place], [address], 4 16:19:18 varicella-z emily igg Ab screen, serum 2023 024 [facility], [address] [place], [address], 4 16:19:16 antibody screen, serum or plasma 2023 024 [facility], [address] [place], [address], 4 16:19:17 test, urine [email or web address], [address] [place] [address], [address], 4 11:57:19 urinalysis, dipstick 2022 023 [facility], [address] [place] [address], [address], 3 15:49:43 culture, urine 2022 023 [facility], [address] [place], [address], 3 18:01:47 test, urine 2022 023 [facility], [address] [place], [address], 3 15:49:42 STI panel 2022 023 [facility] [employer] [facility], [address] [place], [address], 3 11:42:43 HPV E6+E7 mRNA, qualitative PCR, cervix 2022 023 [facility] [employer] [facility], [address] [place], [address], 3 09:59:38 unlisted lab - Pap reflex hold 2022 023 [facility], [address] [place], [address], 3 14:12:53 pap, LB 2022 023 [facility], [address] [place], [address], 3 18:01:46 Referral None recorded. Procedures None recorded. Surgeries None recorded. Imaging US, transvagina l 2023 024 [facility] Not available 14:21:46 Medication Orders Claritin-D 12 Hour 5 mg-120 mg tablet,exte nded release 2023 [id number], [address] [facility], [place], [place], [id number], 4 17:38:50 Bactrim DS 800 mg-160 mg tablet 2022 024 [id number], [address] , [place], [place], [id number], 4 11:19:06 NuvaRing 0.12 mg-0.015 mg/24 hr vaginal 2022 024 [facility][id number], [address], [place], [place], [id number], 4 11:19:44 Patient TargetsNo targets recorded. Patient InstructionsNo instructions recorded. Reason for Referral None Reported. Results Created Date Observation Date Name Description Value Unit Range Abnormal Flag Note LastModifiedBy Organization Detail LastModifiedTime 07/23/2007/23/2023 HPV HIGH RISK HPV high risk merged to [id number] Not Available [facility] ol [address] [place], [address], 07/24/2023 09:59:38 07/23/2007/24/2023 THINP REP TIS PAP report status: Not Available [facility] [address] [place], [address], 07/24/2023 18:01:46 07/23/2007/24/2023 THINP REP TIS PAP clinical information: Not Available [address] [address] [place], [address], 07/24/2023 18:01:46 07/23/2007/24/2023 THINP REP TIS PAP LMP: Not Available [facility] [employer] [address], [address], 07/24/2023 18:01:46 07/23/2007/24/2023 THINP REP TIS PAP prev. Pap: Not Available [facility] [address], [address], 07/24/2023 18:01:46 07/23/2007/24/2023 THINP REP TIS PAP prev. BX: Not Available [facility] [address], [address], 07/24/2023 18:01:46 07/23/2007/24/2023 THINP REP TIS PAP source: Not Available [facility] [address], [address], 07/24/2023 18:01:46 07/23/2007/24/2023 THINP REP TIS PAP statement of adequacy: Not Available [address], [address], 07/24/2023 18:01:46 07/23/2007/24/2023 THINP REP TIS PAP general categorizati on: Not Available [address], [address], 07/24/2023 18:01:46 07/23/2007/24/2023 THINP REP TIS PAP interpretati on/result: Not Available [address], [address], 07/24/2023 18:01:46 07/23/2007/24/2023 THINP REP TIS PAP infection: Not Available [address], [address], 07/24/2023 18:01:46 07/23/2007/24/2023 THINP REP TIS PAP comment: Not Available [address], [address], 07/24/2023 18:01:46 07/23/2007/24/2023 THINP REP TIS PAP cytotechnolo gist: Not Available [address], [address], 07/24/2023 18:01:46 07/23/2007/24/2023 THINP REP TIS PAP review cytotechnolo gist: Not Available [address], [address], 07/24/2023 18:01:46 07/23/2007/24/2023 THINP REP TIS PAP pathologist: Not Available [address] [place], [address], 07/24/2023 18:01:46 07/23/20 23 07/25/2023 CULTU RE, URINE , ROUTI NE culture, urine, routine SEE NOTE abnormal CULTU RE, URINE , ROUTI NE Micro Numbe r: [id number] Test Statu s: Final Speci men Sourc e: Not given Speci men Quali ty: Adequ ate Resul t: Great er than 100,0 00 CFU/m L of Esche leanna a coli E.col i ----- ----- ----- - INT JENNIFER AMOX/ CLAVU LANAT E S <=2 AMP/S ULBAC MARQUEZ S <=2 CEFAZ JOVAN NR <=4 2 CEFEP GUZMAN S <=0.1 2 CEFTA ZIDIM E S <=1 CEFTR IAXON E S <=0.2 5 CIPRO FLOXA ARIAN S <=0.0 6 GENTA MICIN S <=1 IMIPE NEM S <=0.2 5 LEVOF LOXAC IN S <=0.1 2 MEROP ENEM S <=0.2 5 NITRO FURAN TOIN S <=16 PIP/T AZOBA CTAM S <=4 TRIME THOPR IM/SAENZ LFA S <=20 S=Corinne cepti ble I=Int ermed iate R=Res istan t * = Not Teste d NR = Not Repor belia NN = See Thera py Comme nts THERA PY COMME NTS Note 1: For infec tions other than uncom plica belia UTI cause d by E. coli, K. pneum oniae or P. mirab ilis: Cefaz jovan is resis tant if JENNIFER > or = 8 mcg/m L. (Dist ingui shing susce ptibl e versu s inter media te for isola garth with JENNIFER < or = 4 mcg/m L requi res addit ional testi ng.) Note 2: For uncom plica belia UTI cause d by E. coli, K. pneum oniae or P. mirab ilis: Cefaz jovan is susce ptibl e if JENNIFER <32 mcg/m L and predi cts susce ptibl e to the oral agent s cefac tejal, cefdi dash, cefpo doxim e, cefpr ozil, cefur oxime , cepha lexin and lorac arbef . Not Available [address], [address], 07/25/2023 18:41:28 07/23/2007/25/2023 THINP REP TIS PAP clinical information: normal None given Not Available [address], [address], 07/25/2023 18:41:27 07/23/2007/25/2023 THINP REP TIS PAP LMP: normal NONE GIVEN Not Available [address], [address], 07/25/2023 18:41:27 07/23/2007/25/2023 THINP REP TIS PAP prev. Pap: normal NONE GIVEN Not Available [address], [address], 07/25/2023 18:41:27 07/23/2007/25/2023 THINP REP TIS PAP prev. BX: normal NONE GIVEN Not Available [address], [address], 07/25/2023 18:41:27 07/23/2007/25/2023 THINP REP TIS PAP source: normal None given Not Available [address], [address], 07/25/2023 18:41:27 07/23/2007/25/2023 THINP REP TIS PAP statement of adequacy: normal Satis facto ry for evalu ation . Endoc ervic al/tr ansfo rmati on zone compo nent prese nt. Age and/o r menst rual statu s not provi ded Not Available [address], [address], 07/25/2023 18:41:27 07/23/2007/25/2023 THINP REP TIS PAP interpretati on/result: normal Cytol ogy Resul ts: Negat nurys for intra epith elial lesio n or malig jf . Not Available [address] [address] [place], [address], 07/25/2023 18:41:27 07/23/2007/25/2023 THINP REP TIS PAP comment: normal This Pap test has been evalu ated with compu ter sylvester [employer] o[employer] . Not Available [address] [address] [place], [address], 07/25/2023 18:41:27 07/23/2007/25/2023 THINP REP TIS PAP cytotechnolo gist: normal BKA, CT( CP) CT scree christina locat ion: [place] [address] [address] [place] [address] Not Available [address], [place], [address], 07/25/2023 18:41:27 07/23/2007/25/2023 THINP REP TIS PAP comment EXPLA NATOR Y NOTE: The Pap is a scree christina test for cervi sudhir cance r. It is not a diagn ostic test and is subje ct to false negat nurys and false posit nurys resul ts. It is most relia ble when a satis facto ry sampl e, regul may obtai kasi, is submi tted with relev ant clini sudhir findi ngs and histo ry, and when the Pap resul t is evalu ated along with histo leeroy and curre nt clini sudhir infor matio n. Not Available [address] [address] [place], [address], 07/25/2023 18:41:27 07/23/2007/26/2023 HPV HIGH RISK HPV high risk Negati ve negati ve normal The HPV High Risk assay is inten ded for use as co-te sting with cytol ogy and not as a subst itute for regul ar cervi sudhir cytol ogy scree christina. This assay is not inten ded for use as a scree christina devic e for women under age 30 with casey l cervi sudhir cytol ogy. Not Available [employer] [facility] [address] [place], [address], 07/27/2023 11:42:42 07/23/2007/24/2023 STI PANEL trichomonas vaginalis TRICH neg negati ve normal Not Available [employer] [facility] [address] [place], [address], 07/27/2023 11:42:43 07/23/2007/24/2023 STI PANEL chlamydia trachomatis CT neg negati ve normal This repor t is inten ded for us in clini sudhir monit oring and manag ement of patie nts. It is not inten ded for use in medic al-le gal appli catio n. Not Available [address], [address], 07/27/2023 11:42:43 07/23/2007/24/2023 STI PANEL neisseria gonorrhoeae GC neg negati ve normal This repor t is inten ded for us in clini sudhir monit oring and manag ement of patie nts. It is not inten ded for use in medic al-le gal appli catio n. Not Available [address], [address], 07/27/2023 11:42:43 07/23/2007/23/2023 pregn kwadwo test, urine HCG negati ve Not Available [address], [address], 07/23/2023 15:29:43 07/23/2007/23/2023 urina lysis , dipst ick Leukocytes Modera te Not Available [facility] [address] [place], [address], 07/23/2023 15:28:56 07/23/2007/23/2023 urina lysis , dipst ick Nitrite positi ve Not Available [address], [place], [address], 07/23/2023 15:28:56 07/23/2007/23/2023 urina lysis , dipst ick Protein Trace Not Available [address], [place], [address], 07/23/2023 15:28:56 07/23/2007/23/2023 urina lysis , dipst ick pH 6.0 Not Available [address], [place], [address], 07/23/2023 15:28:56 07/23/2007/23/2023 urina lysis , dipst ick Blood Modera te Not Available [address], [place], [address], 07/23/2023 15:28:56 07/23/2007/23/2023 urina lysis , dipst ick Specific Stanton 1.020 Not Available [address], [place], [address], 07/23/2023 15:28:56 07/23/2007/23/2023 urina lysis , dipst ick Ketone Trace Not Available [address], [place], [address], 07/23/2023 15:28:56 07/23/2007/23/2023 urina lysis , dipst ick Bilirubin Negati ve Not Available [address], [place], [address], 07/23/2023 15:28:56 07/23/2007/23/2023 urina lysis , dipst ick Glucose Negati ve Not Available [address], [place], [address], 07/23/2023 15:28:56 07/23/2007/23/2023 urina lysis , dipst ick Appearance Slight ly Cloudy Not Available [address], [place], [address], 07/23/2023 15:28:56 07/23/2007/23/2023 urina lysis , dipst ick Color Pale Yellow Not Available [address], [place], [address], 07/23/2023 15:28:56 05/16/20 24 05/17/2024 HEMOG LOBIN A1C hemoglobin A1C 4.5 % <5.7 normal The refer ence range for HbA1c is indic ated in the table below . Sugge sted Diagn osis =6.5% Consi stent with diabe garth 5.7 6.4% Consi stent with incre ased risk for diabe garth (pred iabet ic) <5.7% Consi stent with the absen ce of diabe garth Not Available [employer] [facility] [address] [place], [address], 05/17/2024 10:17:31 05/16/20 24 05/17/2024 CBC (INCL UDES DIFF/ PLT) WBC 9.4 thous and/u L 4.0 - 9.8 normal Not Available [employer] [facility] [address] [place], [address], 05/17/2024 11:10:03 05/16/20 24 05/17/2024 CBC (INCL UDES DIFF/ PLT) RBC 4.5 darcy on/uL 3.9 - 4.9 normal Not Available [address], [address], 05/17/2024 11:10:03 05/16/20 24 05/17/2024 CBC (INCL UDES DIFF/ PLT) hemoglobin 13.6 g/dL 11.8 - 14.8 normal Not Available [address], [address], 05/17/2024 11:10:03 05/16/20 24 05/17/2024 CBC (INCL UDES DIFF/ PLT) hematocrit 39.5 % 35.5 - 44.0 normal Not Available [address], [address], 05/17/2024 11:10:03 05/16/20 24 05/17/2024 CBC (INCL UDES DIFF/ PLT) MCV 88.6 fL 82.0 - 99.0 normal Not Available [address], [address], 05/17/2024 11:10:03 05/16/20 24 05/17/2024 CBC (INCL UDES DIFF/ PLT) MCH 30.5 pg 27.2 - 32.6 normal Not Available [address], [address], 05/17/2024 11:10:03 05/16/20 24 05/17/2024 CBC (INCL UDES DIFF/ PLT) MCHC 34.4 g/dL 31.5 - 35.5 normal Not Available [address], [address], 05/17/2024 11:10:03 05/16/20 24 05/17/2024 CBC (INCL UDES DIFF/ PLT) RDW-CV 12.6 % 11.5 - 14.5 normal Not Available [address], [address], 05/17/2024 11:10:03 05/16/20 24 05/17/2024 CBC (INCL UDES DIFF/ PLT) platelet 270 thous and/u L 140 - 350 normal Not Available [address], [address], 05/17/2024 11:10:03 05/16/20 24 05/17/2024 CBC (INCL UDES DIFF/ PLT) MPV 11.6 fL 9.3 - 12.4 normal Not Available [address], [address], 05/17/2024 11:10:03 05/16/20 24 05/17/2024 CBC (INCL UDES DIFF/ PLT) absolute neutrophil 6.89 thous and/u L 1.90 - 7.00 normal Not Available [address], [address], 05/17/2024 11:10:03 05/16/20 24 05/17/2024 CBC (INCL UDES DIFF/ PLT) absolute lymphocyte 1.89 thous and/u L 0.70 - 4.50 normal Not Available [address], [address], 05/17/2024 11:10:03 05/16/20 24 05/17/2024 CBC (INCL UDES DIFF/ PLT) absolute monocyte 0.47 thous and/u L 0.10 - 1.30 normal Not Available [address], [address], 05/17/2024 11:10:03 05/16/20 24 05/17/2024 CBC (INCL UDES DIFF/ PLT) absolute eosinophil 0.08 thous and/u L <0.70 normal Not Available [address], [address], 05/17/2024 11:10:03 05/16/20 24 05/17/2024 CBC (INCL UDES DIFF/ PLT) absolute basophil 0.03 thous and/u L <0.20 normal Not Available [address], [address], 05/17/2024 11:10:03 05/16/20 24 05/17/2024 CBC (INCL UDES DIFF/ PLT) absolute immature granulocyte 0.01 thous and/u L <0.03 normal Not Available [address], [address], 05/17/2024 11:10:03 05/16/20 24 05/17/2024 OB PANEL - STD BLOOD WORK hep BS Ag Non-Re active non-re active normal Not Available [address], [address], 05/17/2024 12:17:29 05/16/20 24 05/17/2024 OB PANEL - STD BLOOD WORK hep C Ab Non-Re active non-re active normal Not Available [address], [address], 05/17/2024 12:17:29 05/16/20 24 05/17/2024 OB PANEL - STD BLOOD WORK HIV 1/2 Ag/Ab Non-Re active non-re active normal Not Available [address], [address], 05/17/2024 12:17:29 05/16/20 24 05/17/2024 OB PANEL - STD BLOOD WORK syphilis Ab Non-Re active non-re active normal Not Available [address], [address], 05/17/2024 12:17:29 05/16/20 24 05/17/2024 OB PANEL - STD BLOOD WORK rubella Ab IgG 47.9 IU/mL normal INTER PRETI VE INFOR MATIO N: Rubel la Antib kavitha, IgG. < 5.0 IU/mL ..... ..... . Not consi stent with immun ity 5.0 - 9.9 IU/mL ..... . Equiv ocal: Indet ermin ate-R epeat testi ng in 10-14 days may be helpf ul. > or = 10.0 IU/mL ... Consi stent with immun ity The prese nce of Rubel la IgG antib kavitha sugge st respo nse to immun izati on or prior /curr ent expos ure to the Rubel la virus . Not Available [employer] [facility] [address] [place], [address], 05/17/2024 12:17:29 05/16/20 24 05/19/2024 CT/NG chlamydia trachomatis CT neg negati ve normal This repor t is inten ded for us in clini suhdir monit oring and manag ement of patie nts. It is not inten ded for use in medic al-le gal appli catio n. Not Available [employer] [facility] [address] [place] [address], [address], 05/19/2024 12:50:39 05/16/20 24 05/19/2024 CT/NG neisseria gonorrhoeae GC neg negati ve normal This repor t is inten ded for us in clini sudhir monit oring and manag ement of patie nts. It is not inten ded for use in medic al-le gal appli catio n. Not Available [employer] [address] [place] [address], [address], 05/19/2024 12:50:39 05/16/20 24 05/19/2024 DRUG ABUSE PANEL 7 W/CON FIRM amphetamines Negati ve negati ve normal Not Available [employer] [place], [address], 05/19/2024 15:46:54 05/16/20 24 05/19/2024 DRUG ABUSE PANEL 7 W/CON FIRM barbiturates Negati ve negati ve normal [place], [address], 05/19/2024 15:46:54 05/16/20 24 05/19/2024 DRUG ABUSE PANEL 7 W/CON FIRM benzodiazepi angelina Negati ve negati ve normal [place], [address], 05/19/2024 15:46:54 05/16/20 24 05/19/2024 DRUG ABUSE PANEL 7 W/CON FIRM cocaine metabolites Negati ve negati ve normal Not Available [employer] [facility] [address] [place], [address], 05/19/2024 15:46:54 05/16/20 24 05/19/2024 DRUG ABUSE PANEL 7 W/CON FIRM cannabinoids Negati ve negati ve normal Not Available [employer] [facility] [address] [place], [address], 05/19/2024 15:46:54 05/16/20 24 05/19/2024 DRUG ABUSE PANEL 7 W/CON FIRM methadone Negati ve negati ve normal Not Available [employer] [facility] [address] [place], [address], 05/19/2024 15:46:54 05/16/20 24 05/19/2024 DRUG ABUSE PANEL 7 W/CON FIRM opiates Negati ve negati ve normal Not Available [employer] [facility] [address] [place], [address], 05/19/2024 15:46:54 05/16/20 24 05/19/2024 DRUG ABUSE PANEL 7 W/CON FIRM creatinine, urine 125 mg/dL 20 - 275 normal Not Available [employer] [employer], [address], 05/19/2024 15:46:54 05/16/20 24 05/19/2024 VARIC PHILLIP ZOSTE R VIRUS ANTIB KAVITHA (IGG) varicella zoster virus antibody (IgG) 288.50 index normal Index Inter preta tion ----- ---- ----- ----- ----- ----- -- <135. 00 Negat nurys - Antib kavitha not detec belia 135.0 0 - 164.9 9 Equiv ocal > or = 165.0 0 Posit nurys - Antib kavitha detec belia A posit nurys resul t indic ates that the patie nt has antib kavitha to VZV but does not diffe renti ate betwe en an activ e or past infec tion. The clini sudhir diagn osis must be inter prete d in conju nctio n with the clini sudhir signs and sympt oms of the patie nt. This assay relia shamika measu res immun ity due to previ ous infec tion but may not be sensi tive enoug h to detec t antib odies induc ed by vacci natio n. Thus, a negat nurys resul t in a vacci nated indiv idual does not neces saril y indic ate susce ptibi lity to VZV infec tion. A more sensi tive test for vacci natio n-ind uced immun ity is Varic phillip Zoste r Virus Antib kavitha Immun ity Scree n, ACIF. Not Available [facility] [address] [address] [place], [address], 05/19/2024 16:19:16 05/16/2005/19/2024 MEASL ES AB (IGG) , IMMUN E STATU S measles Ab (IgG), immune status 63.90 AU/mL normal AU/mL Inter preta tion ----- ----- ----- ---- <13.5 0 Not consi stent with immun ity 13.50 -16.4 9 Equiv ocal >16.4 9 Consi stent with immun ity The prese nce of measl es IgG sugge sts immun izati on or past or curre nt infec tion with measl es virus . For addit ional infor dionte lubin e refer to http: //erendira gandhi.Que stDia gnost ics.c om/fa q/FAQ 162 (This link is being provi ded for infor philip gutierrez/ educemerson jefferson l purpo ses only. ) Not Available [employer] [facility] [address] [place], [address], 05/19/2024 16:19:16 05/16/2005/19/2024 ANTIB KAVITHA SCREE N, RBC W/REF L ID, TITER AND AG antibody screen, RBC w/refl id, titer and Ag NO ANTIBO DIES DETECT ED normal Refer ence range No antib odies detec belia This assay is a scree christina test for the detec tion of red blood cell antib odies . The test is not to be used for pretr ansfu matthew scree christina or for the medic al manag ement of an alloi mmuni zed pregn kwadwo. Not Available [address] [address] [place], [address], 05/19/2024 16:19:17 05/16/20 24 05/19/2024 ABO GROUP AND RH TYPE ABO group A Not Available [address] [address] [place], [address], 05/19/2024 16:19:18 05/16/20 24 05/19/2024 ABO GROUP AND RH TYPE Rh type RH(D) POSITI VE For addit ional infor dionte lubin e refer to http: //[facility] zach Caldwell stDia gnost ics.c om/fa q/FAQ 111 (This link is being provi ded for infor philip gutierrez/ vi noriega purpo ses only. ) Not Available [address] [place], [address], 05/19/2024 16:19:18 05/16/2005/19/2024 CULTU RE, URINE , ROUTI NE culture, urine, routine SEE NOTE CULTU RE, URINE , ROUTI NE Micro Numbe r: [id number] Test Statu s: Final Speci men Sourc e: Urine Speci men Quali ty: Adequ ate Resul t: No Growt h Not Available [address] [address] [place], [address], 05/19/2024 16:19:18 05/16/20 24 05/16/2024 pregn kwadwo test, urine HCG positi ve Not Available [facility] [address] [place], [address], 05/16/2024 09:28:39 05/16/2005/16/2024 US, trans vagin al No observ ation record ed. [email or web address] [address], [place], [address], 05/18/2024 12:27:37 Result Notes None recorded. Problems Name Problem SNOMED Code Status Onset Date Resolution Date Notes Provider Name and Address Organization Details Recorded Time Gestatio n period, 20 weeks 93225065 Completed 201712/13/2018 20 weeks gestatio n of pregnanc y; Progress : Stable Added By: Berta Wright Add to Current Problems : NO ProblemS tatus: Resolve Not Available [facility] 2 21:06:20 Gestatio n period, 32 weeks [id number] Completed 201712/13/2018 32 weeks gestatio n of pregnanc y; Progress : Stable Added By: Kitty Mayberry Add to Current Problems : NO ProblemS tatus: Resolve Not Available [facility] 21:06:23 Gestatio n period, 28 weeks [id number] Completed 201712/13/2018 28 weeks gestatio n of pregnanc y; Progress : Stable Added By: Stephanie Coyle Add to Current Problems : NO ProblemS tatus: Resolve Not Available [facility] 2 21:06:23 Acute vaginiti s [id number] Completed 201806/02/2020 Acute vaginiti s; Progress : Stable Added By: Shahana Copeland Add to Current Problems : NO ProblemS tatus: Resolve Not Available [facility] 2 21:06:24 Uses combined oral contrace ption [id number] Completed 201806/02/2020 Encounte r for initial prescrip tion of contrace ptive pills; Progress : Stable Added By: Zuleima Orona Add to Current Problems : NO ProblemS tatus: Resolve Not Available [facility] 2 21:06:22 Gestatio n period, 24 weeks [id number] Completed 201712/13/2018 24 weeks gestatio n of pregnanc y; Progress : Stable Added By: Stephanie Coyle Add to Current Problems : NO ProblemS tatus: Resolve Not Available [facility] 2 21:06:22 Gestatio n period, 35 weeks [id number] Completed 201812/13/2018 35 weeks gestatio n of pregnanc y; Progress : Stable Added By: Yesi Guillen Add to Current Problems : NO ProblemS tatus: Resolve Not Available [facility] 2 21:06:20 Lochia finding Completed 201806/02/2020 Encounte r for routine postpart um follow-u p; Progress : Stable Added By: Shahana Copeland Add to Current Problems : NO ProblemS tatus: Resolve Not Available [facility] 2 21:06:22 Gestatio n period, 37 weeks [id number] Completed 201812/13/2018 37 weeks gestatio n of pregnanc y; Progress : Stable Added By: Cassandra Aceves Add to Current Problems : NO ProblemS tatus: Resolve Not Available [facility] 2 21:06:23 Gestatio n period, 36 weeks [id number] Completed 201812/13/2018 36 weeks gestatio n of pregnanc y; Progress : Stable Added By: Yesi Guillen Add to Current Problems : NO ProblemS tatus: Resolve Not Available [facility] 2 21:06:24 Sampling of vagina for Papanico laou smear Active 2018 Encounte r for gynecolo gical examinat ion (general ) (routine ) without abnormal findings ; Severity : Moderate Progress : Stable Added By: Ina Arriaga Add to Current Problems : YES ProblemS tatus: Current Not Available [facility] 1 19:22:25 Rubella screenin g status [id number] Completed 201712/13/2018 Antenata l screenin g; unspecif ied; Location : None Progress : Stable Added By: Stephanie Coyle Add to Current Problems : YES ProblemS tatus: Current Antenata l screenin g; unspecif ied; Location : None Progress : Stable Added By: Berta Wright Add to Current Problems : YES ProblemS tatus: Current Encounte r for antenata l screenin g, unspecif ied; Progress : Stable Added By: Stephanie Coyle Add to Current Problems : NO ProblemS tatus: Resolve Not Available [facility] 2 21:06:21 Pelvic and perineal pain 592417500 Completed 201712/13/2018 Pelvic and perineal pain; Progress : Stable Added By: Malathi Ascencio Add to Current Problems : NO ProblemS tatus: Resolve Not Available [facility] 2 21:06:21 Normal pregnanc y in multigra roula [id number] 4106 Completed 201712/13/2018 Encounte r for supervis ion of other normal pregnanc y, second trimeste r; Progress : Stable Added By: Stephanie Coyle Add to Current Problems : NO ProblemS tatus: Resolve; Start Date : 04/19/20 18 Encou nter for supervis ion of other normal pregnanc y, third trimeste r; Progress : Stable Added By: Cassandra Aceves Add to Current Problems : NO ProblemS tatus: Resolve Not Available [facility] 2 21:06:22 Gestatio n period, 30 weeks 38214366 Completed 201712/13/2018 30 weeks gestatio n of pregnanc y; Progress : Stable Added By: Clemencia Domingo Add to Current Problems : NO ProblemS tatus: Resolve Not Available [facility] 2 21:06:20 Contrace ptive sheath status 422487112 Active 2019 Encounte r for initial prescrip tion of other contrace ptives; Progress : Stable Added By: Ina Arriaga Add to Current Problems : YES ProblemS tatus: Current Not Available [facility] 2 21:06:24 Normal pregnanc y 28523985 Active 2017 Medical visit for normal pregnanc y; Location : None Progress : Stable Added By: Stephanie Coyle Add to Current Problems : YES ProblemS tatus: Current Medical visit for normal pregnanc y; Location : None Progress : Stable Added By: Berta Wright Add to Current Problems : YES ProblemS tatus: Current Not Available [facility] 2 21:06:21 Antenata l screenin g Completed 201812/13/2018 Encounte r for antenata l screenin g for Streptoc occus B; Progress : Stable Added By: Yesi Guillen Add to Current Problems : NO ProblemS tatus: Resolve Encounte r for anatomic survey; Location : None Progress : Stable Added By: Berta Wright Add to Current Problems : YES ProblemS tatus: Current; Start Date : 07/04/20 18 Encou nter for other specifie d antenata l screenin g; Progress : Stable Added By: Cassandra Aceves Add to Current Problems : NO ProblemS tatus: Resolve; Start Date : 04/19/20 18 Not Available [facility] 2 21:06:21 Depressi on screenin g Completed 201806/02/2020 Encounte r for screenin g for maternal depressi on; Progress : Stable Added By: Shahana Copeland Add to Current Problems : NO ProblemS tatus: Resolve Not Available [facility] 2 21:06:23 Maternal hypotens ion syndrome 54000230 Active 2023 says that her BP runs low during pregnanc y, Claritin -D sent in for her to take PRN to help keep her BP up. BILL BAUTISTA NP [address] [place], [address] , [facility] 4 17:41:02 Pregnanc y 05348662 Active 2023 BILL BAUTISTA NP [address] [place], [address] , [facility] 4 17:39:54 Maternal hypotens ion syndrome 95656144 Active 2023 says that her BP runs low during pregnanc y, Claritin -D sent in for her to take PRN to help keep her BP up. BILL BAUTISTA NP [address] [place], [address] , [facility] 4 17:41:02 Notes:Encounter for an atomic survey (V28.81) ; OnsetDate: 07/04/2018; ResolvedDate: 10/17/2018; Progress: Stable Added By: Berta Diaz Add to Current Problems: NO ProblemStatus: Resolve screening; unspecified (V28.9) ; OnsetDate: 04/19/2018; ResolvedDate: 10/17/2018; Progress: Stable Added By: Stephanie Love Add to Current Problems: NO ProblemStatus: Resolve Medical visit for normal (V22.1) ; OnsetDate: 04/19/2018; ResolvedDate: 10/17/2018; Progress: Stable Added By: Stephanie Love Add to Current Problems: NO ProblemStatus: Resolve Problem Notes None recorded. Procedures Surgical History Date Name Laterality Status Provider Name and Address Organization Details Recorded Time 07/23/2023 Date of Last Pap Smear completed BILL BAUTISTA, [employer] [address] [facility] [address], [place], [address], [facility] 05/17/2024 17:25:53 Imaging Results Imaging Date Name Status LastModified by Organization Details LastModified Time 05/16/2024 US, transvaginal completed [email or web address] Mona [address], [place], [address], 05/18/2024 12:27:37 Procedure Notes None recorded. Medical Equipment None Reported. Allergies No known drug allergies Medications Name Sig Start Date Stop Date Status Note LastModified by Organization Details LastModified Time lido 5%/nifed 0.5% ointment APPLY SPARINGL Y TO AFFECTED AREA 1-3 TIMES DAILY NEEDED. active Not Available Not Available No t Available metronida zole 0.75 % (37.5 mg/5 gram) vaginal gel 1 applicat or per vagina at hs x 7 days 02/16 completed Metronid azole 0.75% Vaginal Gel RxNorm: 268809 Allow Substitu tion: True Refill Denied: No Not Available Not Available Not Available sulfameth oxazole 800 mg-trimet hoprim 160 mg tablet Take 1 tablet every 12 hours by oral route as directed for 3 days. 05/16 completed Not Available Not Available Not Available ketorolac 10 mg tablet TAKE 1 TABLET BY MOUTH 6 HOURS AFTER SURGERY THEN 1 TABLET EVERY 6 HOURS NEEDED FOR PAIN active Not Available Not Available No t Available Vitamin tablet Take 1 tablet(s ) by mouth daily 03/11 completed Multivit vyas Tablet RxNorm: 0 Allow Substitu tion: True Refill Denied: No Not Available Not Available Not Available Claritin- D 12 Hour 5 mg-120 mg tablet,ex tended release Take 1 tablet as needed by oral route. 2023 active Not Available Not Available Not Avai lable oxycodone -acetamin ophen 7.5 mg-325 mg tablet TAKE 1 TO 2 TABLETS BY MOUTH EVERY 4 TO 6 HOURS NEEDED FOR PAIN active Not Available Not Available No t Available Ortho Micronor 0.35 mg tablet 1 tablet PO daily at the same time. Start today with first tablet 04/04 completed Micronor 0.35mg Tablet RxNorm: 535002 Allow Substitu tion: True Refill Denied: No Not Available Not Available Not Available etonogest rel 0.12 mg-ethiny l estradiol 0.015 mg/24 hr vaginal ring insert 1 vaginal ring by vaginal route once a month leave in place for 3 weeks, remove for 1 week 05/16 completed Not Available Not Available Not Available Vitals Date Recorded Body weight Body mass index (BMI) Body height Systolic blood pressure Diastolic blood pressure Provider Name and Address Organization Details Last Updated DateTime 07/23/2023 14430.8 9 g 24.1 kg/m2 165.1 cm 110 mm[Hg] 60 mm[Hg] Yareli Rosales [facility] 3 15:19:12 Date Recorded Body height Body mass index (BMI) Body weight Systolic blood pressure Diastolic blood pressure Provider Name and Address Organization Details Last Updated DateTime 05/16/2024 165.1 cm 24.8 kg/m2 82375.2 6 g 96 mm[Hg] 54 mm[Hg] Yareli Rosales [facility] 4 11:27:13 Social History Question Answer Notes LastModified by Organizat ion Details LastModified Time Tobacco Smoking Status Never Smoker Yareli field [facility] 07/23/2023 15:08:39 What Is Your Level Of Alcohol Consumption? Occasional Information not available 07/23/2023 If You Are , What Was Your Level Of Alcohol Consumption Prior To ? None Information not available 07/23/2023 Are You Blind Or Do You Have Difficulty Seeing? No Information not available 07/23/2023 Are You Currently Employed? Yes Information not available 07/23/2023 Are You Deaf Or Do You Have Serious Difficulty Hearing? No Information not available 07/23/2023 What Type Of Diet Are You Following? REGULAR Information not available 07/23/2023 How Many Children Do You Have? 4 Information not available 07/23/2023 Are There Any Occupational Health Risks Where You Work? No Information not available 07/23/2023 What Is Your Relationship Status? Information not available 07/23/2023 Are You Sexually Active? Yes Information not available 07/23/2023 Do You Use Any Illicit Or Recreational Drugs? No Information not available 07/23/2023 Do You Or Have You Ever Used Any Other Forms Of Tobacco Or Nicotine? No Information not available 07/23/2023 Sex: Unknown Functional Status Question Answer Note LastModified by Organization D etails LastModified Time What is your exercise level? Moderate Information not available 07/23/2023 Mental Status None recorded. Family History Relationship Description Onset Age of this Age Resolved Age Notes LastModified by Organization Details LastModified Time Father No current problems or disability [email or web address] z Not available 05/16/2024 11:25:29 Mother No current problems or disability apietiukiewic z Not available 05/16/2024 11:25:29 Medical History Condition Response History of Abnormal Pap Y Anemia Y Gynecological History Statement/Question Response Flow Heavy Date of last HPV 07/23/2023 Frequency of Cycle (Q days) Na Date of LMP 03/15/2024 Date of Last Pap Smear 07/23/2023 Duration of Flow (days) 5 Current Control Method Age at Menarche 12 Obstetrics History GPAL:G 6 P 4 0 1 4 Type Value Full Term 4 Spontaneous 1 Living 4 Total 6 Past Encounters Encounter ID Performer Location Encounter Start Date Encounter Closed Date Diagnosis/Indication Diagnosis SNOMED-CT Code Diagnosis ICD10 Code Diagnosis Note [id number] Malathi AscencioTORRES [facility] [address] [place] [address] 07/23/2023 14:34:36 07/23/2023 17:29:00 Vaginal discharge 609106228 N89.8 SSE WNL. Vaginal cx added to pap collection . Pt educated on exam findings, and discussed POC. Pt advised to avoid fragrant soaps/laun dry detergents , use of baking soda soaks, having partner change soaps, etc. Further POC pending lab result review. Dysuria 42573478 R30.0 Pt educated on pushing p.o. water intake, avoidance of sugary drinks, and on AZO PRN. UA dip notable for blood, nitrates, protein, and leuks. Urine cx collected and sent. Rx for Bactrim DS sent. Further POC pending lab result review. Pt educated on when to notify HCP/go to ER. > 30 minutes spent in patient care and at least 50% of that time was in face to face counseling . Initiation of hormone releasing contraceptive vaginal ring done [id number] 46288 Z30.018 Pt educated on vaginal contracept nurys ring use also being beneficial to regulate cycle pattern. Pt educated on risks Vs benefits of use, and reviewed ACHES symptoms. Importance of following dosing schedule as directed reinforced to pt, and on use of condoms or abstinence if dosing schedule is interrupte d. Rx sent. Pt educated on importance of avoiding unprotecte d intercours e during first month of use. Screening for malignant neoplasm of cervix 983736024 Z12.4 ASCCP guidelines reviewed with pt. Pap collected and sent. Further POC pending lab result review. Pt signed a records release for outside provider pap records in [place]. Venereal d isease screening 100321669 Z11.3 Pt educated on importance of condom use for protection against STD's. Samples collected and sent. Further POC pending lab result review. Pt states understand ing of POC. [id number] BILL BAUTISTA NP [facility] [address] [place] [address] 05/16/2024 10:51:46 05/19/2024 15:44:38 Menstrual period late 60881824 N92.6 Pt presents today for a confirmati on of visit. has not been previously confirmed at another healthcare facility. Pt voiced that she is happy about this . TVUS today showed:IUP with Cardiac Activity. DONTRELL consistent with LMP. LMP: 03/15/24EDD : 12/20/[birth year]Ges tational Age: 8w 6dFHT: 175 bpm First trimester teaching provided.- --Foods and activities to avoid---We ight gain recommenda tions based on BMI---Safe meds---Shant entation to practice-- -Delivery locations- --TOBY visit progressio n---Prenat al vitamins daily---To xoplasmosi s precaution s reviewed-- -[facility] Guide; What to expect on your maternity journey -- -S/S of SAB reviewed and when to seek care--BMI: 24.8 --Medicati ons Reviewed: PNV POC:draw blood todaywill draw unity at next visitsend claritin D to pharmacyhy maribeth dailykeepi kanu track of BPseating good amount of protein dailyflexi ng calves & things 10x an hour while awake. RTC - - 4 weeks for [place], Labs, and Physical. PAP uptodate test positive 805561993 Z32.01 While in talking with the pt she said that she was not feeling well, she was getting hot & dizzy. Explained that she can tell when she is going to pass out. I had her to lay down, placed cool wash cloths on her as well. BP was retaken in each arm, @ 1050 left 98/60, right 88/50.- Discussed pt immediatel y with Dr. Baum, said that there is not much to do for these pt's besides watch & keep close eye on.- He did recommend for her to do the following. - she could take a claritin D daily to help keep BP elevated, stay well hydrated with water, eat good protein & to flex thighs & calves 10 x an hour while awake. Natalia garzon thirty minutes spent with patient in consultati on (>50% face-to-fa ce). Patient labs and notes were reviewed. Patient questions were answered. Additional patient care was rae fajardo Maternal h ypotension syndrome 25017711 O26.51 Health Concerns Section Related Observation LastModified by Organization Detai ls LastModified Time None Recorded Concern Status LastModified by Organization Details LastModified Time None Recorded Advance Directives Directive None Recorded Payers Encounter Date Sequence Insurance Name Policy Number Policy Adan Covered Member ID Adan Member ID Guarantor Name 07/23/2023 1 [facility] - DOS PRIOR TO 2024 - [employer] () Sherlyn Cardona Eleazar [id number] Mita Bush 05/16/[address] [facility] (MEDICAID HMO) [id number] Mita Bush [id number] Mita Bush Notes Date Note Type Note Provider Name and Address Organization Details Recorded Time 07/23/2023 text/html Patient would li ke re establish and discuss BC, was on the Nuva Ring while living in [place] and would like to go back to that. Patient also states she has a odor and watery discharge after being out of town where she used a diff. soap than usual. She also states she has some dysuria which started a couple months ago, with burning. No hesitancy, blood in the urine, fevers, back pain. Vaginal discharge changed about 1 month ago, white and watery. Abnormal smelling odor. No itching or vaginal redness. Pt. used a new fragrant soap and thinks it is the trigger. Pt. has not had any new sexual partners. Interested in STI testing. Stopped using NuvaRing 7 months ago, no side effects. No history of blood clots, chest pain, HTN. Pt states had abnormal paps in with providers in [place]. Pt states did have repeat paps Q3 months, and hasn't follow up with repeat since late 2021/early 2022. Pt has no other concerns. TORRES Zamora [address] [facility], [place], [address], [facility] 07/23/2023 17:19:07 05/16/2024 text/html Pt presents for OB confirmation visit. Pt's LMP 03/15/24 Pt is feels a little nervous about . Pt denies bleeding, cramping, or n/v. Pt states she is currently taking no medications. Pt has no other concerns aside from feeling dizzy when standing or sitting up. B/P today was 96/54. Patient will monitor B/P at home and will bring her log with her at her next visit as low B/P was a issue with her last . BILL BAUTISTA, JESSICA [address] [facility], [place], [address], [facility] 05/17/2024 17:43:26 OBGyn Episode Ob Episode Information Episode Created Date Number of Fetuses Patient Bloodtype Patient rh Status Prepregnancy Weight lbs Domestic Partner Domestic Partner Phone Father Name Registered Client Associate Status 05/16/20 24 1 CLOSED Fetus Data First Name Last Name Admitted to NICU Weight (g) Sex Living Outcome Pediatric Complications Fetus ID Race Codes Race Delivery Type , Spontane ous Dontrell Calculation Initial Dontrell Date Initial Exam Date Initial Exam Provider Initial Ultrasound Date Last Menstrual Period Date Ultra Sound Weeks Gestation 0 Eighteen To Twenty Week Dnotrell Update Ultra Sound Date Fundal Height At Umbil Quickening Date Ultra Sound Latest Weeks Gestation Final Dontrell Confirmed By Final Dontrell Confirmed Date Final Dontrell Date Ultra Sound Latest Days Gestation 0 0 Menstrual History Last Menstrual Date Menses Monthly On Bcp Conception Prior Menses Frequency Hcg Plus Date Menarche Onset Age Delivery Information Delivery Date Delivery Type Labor Anesthesia Weeks Gestation Incision Type Labor Labor Length Hrs Delivered By Post Complications Tubal Sterilization Discharge Date Comments 0 6 Discharge Information Feeding Method Contraceptive Method Maternal HG B and HCT Levels Ob Episode Information Episode Created Date Number of Fetuses Patient Bloodtype Patient rh Status Prepregnancy Weight lbs Domestic Partner Domestic Partner Phone Father Name Registered Client Associate Status 05/17/20 24 1 A Positive OPEN Fetus Data First Name Last Name Admitted to NICU Weight (g) Sex Living Outcome Pediatric Complications Fetus ID Race Codes Race Delivery Type [id number] Problems Problem Notes Problem Name Start Date End Date Resolution Snomed Code Not e Maternal hypotension syndrome 05/17/2024 [id number] says that her B P runs low during , Claritin-D sent in for her to take PRN to help keep her BP up. Dontrell Calculation Initial Dontrell Date Initial Exam Date Initial Exam Provider Initial Ultrasound Date Last Menstrual Period Date Ultra Sound Weeks Gestation 12/20/2024 05/17/2024 05/16/2024 03/15/2024 8 Eighteen To Twenty Week Dontrell Update Ultra Sound Date Fundal Height At Umbil Quickening Date Ultra Sound Latest Weeks Gestation Final Dontrell Confirmed By Final Dontrell Confirmed Date Final Dontrell Date Ultra Sound Latest Days Gestation 0 0 Menstrual History Last Menstrual Date Menses Monthly On Bcp Conception Prior Menses Frequency Hcg Plus Date Menarche Onset Age 0603/15/2024 Delivery Information Delivery Date Delivery Type Labor Anesthesia Weeks Gestation Incision Type Labor Labor Length Hrs Delivered By Post Complications Tubal Sterilization Discharge Date Comments Discharge Information Feeding Method Contraceptive Method Maternal HG B and HCT Levels Ob Episode Information Episode Created Date Number of Fetuses Patient Bloodtype Patient rh Status Prepregnancy Weight lbs Domestic Partner Domestic Partner Phone Father Name Registered Client Associate Status 12/16/19 22 1 CLOSED Fetus Data First Name Last Name Admitted to NICU Weight (g) Sex Living Outcome Pediatric Complications Fetus ID Race Codes Race Delivery Type 3175.14 4 M [id number] Dontrell Calculation Initial Dontrell Date Initial Exam Date Initial Exam Provider Initial Ultrasound Date Last Menstrual Period Date Ultra Sound Weeks Gestation 0 Eighteen To Twenty Week Dontrell Update Ultra Sound Date Fundal Height At Umbil Quickening Date Ultra Sound Latest Weeks Gestation Final Dontrell Confirmed By Final Dontrell Confirmed Date Final Dontrell Date Ultra Sound Latest Days Gestation 0 0 Menstrual History Last Menstrual Date Menses Monthly On Bcp Conception Prior Menses Frequency Hcg Plus Date Menarche Onset Age Delivery Information Delivery Date Delivery Type Labor Anesthesia Weeks Gestation Incision Type Labor Labor Length Hrs Delivered By Post Complications Tubal Sterilization Discharge Date Comments 5 None 42 false Discharge Information Feeding Method Contraceptive Method Maternal HG B and HCT Levels Ob Episode Information Episode Created Date Number of Fetuses Patient Bloodtype Patient rh Status Prepregnancy Weight lbs Domestic Partner Domestic Partner Phone Father Name Registered Client Associate Status 12/16/19 22 1 CLOSED Fetus Data First Name Last Name Admitted to NICU Weight (g) Sex Living Outcome Pediatric Complications Fetus ID Race Codes Race Delivery Type 3175.14 4 M [id number] Dontrell Calculation Initial Dontrell Date Initial Exam Date Initial Exam Provider Initial Ultrasound Date Last Menstrual Period Date Ultra Sound Weeks Gestation 0 Eighteen To Twenty Week Dontrell Update Ultra Sound Date Fundal Height At Umbil Quickening Date Ultra Sound Latest Weeks Gestation Final Dontrell Confirmed By Final Dontrell Confirmed Date Final Dontrell Date Ultra Sound Latest Days Gestation 0 0 Menstrual History Last Menstrual Date Menses Monthly On Bcp Conception Prior Menses Frequency Hcg Plus Date Menarche Onset Age Delivery Information Delivery Date Delivery Type Labor Anesthesia Weeks Gestation Incision Type Labor Labor Length Hrs Delivered By Post Complications Tubal Sterilization Discharge Date Comments 7 42 false Discharge Information Feeding Method Contraceptive Method Maternal HG B and HCT Levels Ob Episode Information Episode Created Date Number of Fetuses Patient Bloodtype Patient rh Status Prepregnancy Weight lbs Domestic Partner Domestic Partner Phone Father Name Registered Client Associate Status 12/16/19 22 1 CLOSED Fetus Data First Name Last Name Admitted to NICU Weight (g) Sex Living Outcome Pediatric Complications Fetus ID Race Codes Race Delivery Type 2834.95 F [id number] Dontrell Calculation Initial Dontrell Date Initial Exam Date Initial Exam Provider Initial Ultrasound Date Last Menstrual Period Date Ultra Sound Weeks Gestation 0 Eighteen To Twenty Week Dontrell Update Ultra Sound Date Fundal Height At Umbil Quickening Date Ultra Sound Latest Weeks Gestation Final Dontrell Confirmed By Final Dontrell Confirmed Date Final Dontrell Date Ultra Sound Latest Days Gestation 0 0 Menstrual History Last Menstrual Date Menses Monthly On Bcp Conception Prior Menses Frequency Hcg Plus Date Menarche Onset Age Delivery Information Delivery Date Delivery Type Labor Anesthesia Weeks Gestation Incision Type Labor Labor Length Hrs Delivered By Post Complications Tubal Sterilization Discharge Date Comments 9 40 true Discharge Information Feeding Method Contraceptive Method Maternal HG B and HCT Levels Ob Episode Information Episode Created Date Number of Fetuses Patient Bloodtype Patient rh Status Prepregnancy Weight lbs Domestic Partner Domestic Partner Phone Father Name Registered Client Associate Status 07/23/20 23 1 CLOSED Fetus Data First Name Last Name Admitted to NICU Weight (g) Sex Living Outcome Pediatric Complications Fetus ID Race Codes Race Delivery Type 3175.14 4 M Full Term [id number] Dontrell Calculation Initial Dontrell Date Initial Exam Date Initial Exam Provider Initial Ultrasound Date Last Menstrual Period Date Ultra Sound Weeks Gestation 0 Eighteen To Twenty Week Dontrell Update Ultra Sound Date Fundal Height At Umbil Quickening Date Ultra Sound Latest Weeks Gestation Final Dontrell Confirmed By Final Dontrell Confirmed Date Final Dontrell Date Ultra Sound Latest Days Gestation 0 0 Menstrual History Last Menstrual Date Menses Monthly On Bcp Conception Prior Menses Frequency Hcg Plus Date Menarche Onset Age Delivery Information Delivery Date Delivery Type Labor Anesthesia Weeks Gestation Incision Type Labor Labor Length Hrs Delivered By Post Complications Tubal Sterilization Discharge Date Comments 1 Giles norman Discharge Information Feeding Method Contraceptive Method Maternal HG B and HCT Levels
--- OUTSIDE RECORDS SUMMARY | 2024-12-03 08:55 | XMS_ITS | Clinical Summary ---
Author Organization [facility] Address [address] [place] [id number] Care Team Providers Care High Density Press Operator Name Role Phone None, Provider MD Primary Care Provider Unavaila ble Allergies No known active allergies Medications ferrous sulfate, 65 mg elemental, 324 (65 Fe) MG tablet Take 1 tablet (324 mg total) by mouth daily with breakfast. 30 tablet 11/13/2018 Active Active Problems Problem Noted Date Diagnosed Date ([facility]) 11/12/2018 Family History Medical History Relation Comments Hypertension Maternal Grandmother Hypertension Mother Relation Status Comments Maternal Grandmother Mother Social History Tobacco Use Types Packs/Day Years Used Date Smoking Tobacco: Never Smokeless Tobacco: Never Alcohol Use Standard Drinks/Week Comments No 0 (1 standard drink = 0.6 oz pur e alcohol) AUDIT-C Answer Date Recorded Frequency of Alcohol Consumption Never 11/12/2018 Average Number of Drinks Not on file Frequency of Binge Drinking Not on file 11/01 Comments No Sex and Gender Information Value Date Recorded Sex Assigned at Not on file Legal Sex Female 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 Gender Identity Not on file Sexual Orientation Not on file Last Filed Vital Signs Vital Sign Reading Time Taken Comments Blood Pressure 105/77 11/13/2018 8:06 AM DATA 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 Pulse 66 11/13/2018 8:06 AM DATA 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 Temperature 36.9 C (98.4 F) 11/13/2018 8:06 AM DATA 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 Respiratory Rate 18 11/13/2018 8:06 AM DATA 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 Oxygen Saturation 98% 11/13/2018 8:06 AM DATA 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 Inhaled Oxygen Concentration - - Weight 81.6 kg (180 lb) 11/12/2018 12:52 AM DATA 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 Height 165.1 cm (5' 5 ) 11/12/2018 12:52 AM DATA 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 Body Mass Index 29.95 11/12/2018 12:52 AM DATA 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 Plan of Treatment Health Maintenance Due Date Last Done Comments Cervical Cancer Screening Pa p Smear (Age 30 to 64) Every 3 Years 1994 Annual Physical 1997 Hepatitis C 2012 DTaP, Tdap and Td Vaccines ( 1 - Tdap) 2013 Hepatitis B Vaccines (1 of 3 - 19+ 3-dose series) 2013 COVID-19 Vaccine (2023-2 5 season) 2024 Influenza Adult (#1) 2024 Cervical Cancer Screening Pa p with HPV Testing (Age 30 to 64) Every 5 Years 2024 Cervical Cancer Screening with HPV 2024 HPV Vaccines Aged Out No longer eligi ble based on patient's age to complete this topic Meningococcal B Vaccine Aged Out No l onger eligible based on patient's age to complete this topic Meningococcal Vaccine Aged Out No purnima chintan eligible based on patient's age to complete this topic Pneumococcal Vaccine: Pediat rics (0 to 5 Years) and At-Risk Patients (6 to 64 Years) Aged Out No longer eligible b ased on patient's age to complete this topic RSV Immunizations Under 20 Months Aged Out No longer eligible based on patient's age to complete this topic Care Teams High Density Press Operator Relationship Specialty Start Date End Date None, Provider, PCP - General 11/12/18
[2024-12-03 09:51] LABS: Strep Group A RT-PCR DETECTED (Negative)
[2024-12-03 10:06] LABS: Influenza A QL RT-PCR Negative (Negative); Influenza B QL RT-PCR Negative (Negative); RSV RNA, RT-PCR Negative (Negative); SARS-CoV-2 RNA PCR Negative (Negative)
--- NOTE | 2024-12-03 10:15 | ED_ITS ---
HPI - URI/Sore Throat General Chief Complaint: Upper Respiratory Infection Stated Complaint: flu symtpms Time Seen by Provider: 12/03/24 09:50 Source: patient Mode of arrival: ambulatory Limitations: no limitations History of Present Illness HPI Narrative: Patient is a 29-year-old female who presents the ED with report of sore throat. Patient reports she began feeling ill around midnight last night. Complains of sore throat, fever up to 101 degree F, body aches, nausea. States her throat feels swollen, but denies any difficulty breathing or swallowing. 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 Took Tylenol prior to arrival. Denies cough. Denies vomiting. Related Data Home Medications ?Medication ?Instructions ?Recorded ?Confirmed ?Last Taken ?Type etonogestrel 0.12 mg-ethinyl 1 vag ring vaginal MONTHLY 06/08/24 07/26/24 06/08/24 History estradiol 0.015 mg/24 hr vaginal ring (EnilloRing) Allergies Allergy/AdvReac Type Severity Reaction Status Date / Time No Known Allergies Allergy Verified 07/26/24 17:24 Review of Systems Review of Systems: All systems reviewed & are unremarkable except as noted in HPI. All systems reviewed & are unremarkable except as noted in HPI and below PMFSH Past Medical History Medical History Healthy female adult Surgical History Surgical History History of tubal ligation History of elective History of hemorrhoidectomy Family History Family History Grandparent Diabetes mellitus Social History Social History Social History: Surrogate medical decision maker: Ro Campbell, sister. Code status: Full code. Smoking status: Never smoker Alcohol intake: current Drinks per week: 21 Substance use: current Substance use type: marijuana Do You Feel Safe in your Home?: Yes Lack of Transportation: No Lack of Food: Never True Current Housing: I Have Housing Concerned About Future Housing: No Difficulty Paying Gas/Electric Bills: No Difficulty Paying for Meds: No Currently Unemployed: No Education: Associate Degree Difficulty w/ Childcare or Family Care: No Additional living arrangements comments: Recently . She has 4 children under the age of 8. 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 Spiritual care concerns: No Exam Narrative: GENERAL: Mildly uncomfortable appearing, well-nourished, non-toxic, in no acute distress. HEAD: Normocephalic, atraumatic. ENT: MMs moist. Mild posterior pharynx erythema. No significant tonsillar hypertrophy. No appreciable exudate. Uvula is midline and nonedematous. No stridor or trismus. Maintaining secretions. RESPIRATORY: Airway patent, respirations nonlabored. Clear to auscultation bilaterally, no rales, rhonchi, wheezing. CARDIOVASCULAR: Regular rate and rhythm without murmurs, rubs, or gallops. MUSCULOSKELETAL: Moves all extremities. No gross deformities. SKIN: Warm, dry, normal color. NEURO: A&O X3. Speech clear. PSYCHIATRIC: Appropriate mood and affect. Normal interaction. Course Vital Signs Vital signs: Vital Signs Temperature 98.4 F 12/03/24 08:38 Pulse Rate 88 12/03/24 08:38 Respiratory Rate 16 12/03/24 08:38 Blood Pressure 138/89 12/03/24 08:38 Pulse Oximetry 100 12/03/24 08:38 Oxygen Delivery Room Air 12/03/24 08:38 Temperature 98.4 F 12/03/24 08:38 Pulse Rate 88 12/03/24 08:38 Respiratory Rate 16 12/03/24 08:38 Blood Pressure 138/89 12/03/24 08:38 Pulse Oximetry 100 12/03/24 08:38 Oxygen Delivery Room Air 12/03/24 10:02 MDM - URI/Sore Throat MDM Narrative Medical decision making narrative: Patient presented to ED with URI symptoms, sore throat that began overnight. 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 Vital signs are stable upon arrival. Patient is afebrile here. She did take Tylenol prior to arrival for reported fever at home. No signs of airway compromise or respiratory distress. No evidence of peritonsillar abscess on exam. Maintaining secretions. No trismus. No tonsillar hypertrophy or exudate. No hot potato voice. Patient tested positive for group a strep. Discussed this with patient. COVID, influenza, RSV is negative. Patient will be started on antibiotics. Given dose of Toradol in the ED as well as 1st dose of Augmentin. Augmentin and Zofran sent to pharmacy. Patient given return precautions. Given work note. Discharged in stable condition. Medical Records Attestation: I reviewed the patient's medical records. Lab Data Attestation: I reviewed the patient's lab results. Labs: Lab Results 12/03/24 Range/Units 09:20 Influenza A (RT-PCR) Negative (Negative) Influenza B (RT-PCR) Negative (Negative) RSV (RT-PCR) Negative (Negative) SARS-CoV-2 RNA (RT-PCR) Negative (Negative) Group A Strep (PCR) Detected A (Negative) Discharge Plan Discharge Clinical Impression: Strep pharyngitis Patient Disposition: Home, Self-Care Condition: Stable Instructions: Antibiotic Form, Pharyngitis (ED), Strep Throat (ED) Additional Instructions: Take antibiotics as prescribed. Stay well hydrated. Continue Tylenol and ibuprofen around the clock as needed for pain/fevers. Follow-up with your primary care doctor for further evaluation if needed. Return to the ED if you experience worsening or severe symptoms, difficulty swallowing or breathing, unable to keep down food or drink, or any other symptoms of concern. Patient Language: Lebanese Prescriptions: New amoxicillin-pot clavulanate 875-125 mg tablet 1 tablet PO Q12H 10 Days Qty: 20 0RF ondansetron 4 mg tablet,disintegrating 4 mg PO Q8H PRN (Reason: nausea and vomiting) Qty: 15 0RF No Action levofloxacin 750 mg tablet 750 mg PO DAILY Qty: 7 0RF etonogestrel-ethinyl estradiol [EnilloRing] 0.12-0.015 mg/24 hr ring 1 vag ring VAGINAL MONTHLY Follow-up/Referrals: Yamila Lemus, ADVANCED MANAGER-C [Primary Care Provider] - Stand Alone Forms: Work/School Release IP Time of Disposition: 10:20
[2024-12-03] MEDS: KETOROLAC (*BKC) 60 MG/2 ML VIAL IM (10:20)
[2024-12-03] MEDS: AMOXICILLIN/CLAVULANATE K 875-125 MG TAB 1 TABLET PO (10:20)
--- OUTSIDE RECORDS SUMMARY | 2024-12-03 11:08 | XMS_ITS | Clinical Summary ---
Author Organization [facility] Address [address] [place] [id number] Care Team Providers Care Editing Clerk Name Role Phone None, Provider MD Primary Care Provider Unavaila ble Allergies No known active allergies Medications ferrous sulfate, 65 mg elemental, 324 (65 Fe) MG tablet Take 1 tablet (324 mg total) by mouth daily with breakfast. 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 Gender Identity Not on file Sexual Orientation Not on file Last Filed Vital Signs Vital Sign Reading Time Taken Comments Blood Pressure 105/77 11/13/2018 8:06 AM TURNER MACHINE OPERATOR Pulse 66 11/13/2018 8:06 AM TURNER MACHINE OPERATOR Temperature 36.9 C (98.4 F) 11/13/2018 8:06 AM TURNER MACHINE OPERATOR Respiratory Rate 18 11/13/2018 8:06 AM TURNER MACHINE OPERATOR Oxygen Saturation 98% 11/13/2018 8:06 AM TURNER MACHINE OPERATOR Inhaled Oxygen Concentration - - Weight 81.6 kg (180 lb) 11/12/2018 12:52 AM TURNER MACHINE OPERATOR Height 165.1 cm (5' 5 ) 11/12/2018 12:52 AM TURNER MACHINE OPERATOR Body Mass Index 29.95 11/12/2018 12:52 AM TURNER MACHINE OPERATOR Plan of Treatment Health Maintenance Due Date [...] age to complete this topic Care Teams Editing Clerk Relationship Specialty Start Date End Date None, Provider, PCP - General 11/12/18
== END 2024-12-03 10:34 | disposition home or self-care (01) ==
PROVIDERS: Emergency Medicine; Emergency Provider Physician Assistant; PCP Nurse Practitioner Family
DX: J02.0 Streptococcal pharyngitis (principal); Z20.822 Contact with and (suspected) exposure to COVID-19
CPT/HCPCS: 87637; 87651; 96372; 99283; A9270; J1885